=== PATIENT | female | born 1945 | race Caucasian/White ===

== ENCOUNTER 2020-06-12 09:16 | Inpatient (IN) | payer MEDICARE, MEDICAID ==
[~2020-06-12] VITALS: Ht 157.5 cm; Wt 73.6 kg
[2020-06-12 09:19] VITALS: BP 128/84
[2020-06-12] MEDS ORDERED: ARICEPT10 M1 PO (09:23)
[2020-06-12] MEDS ORDERED: APAP650 PO (09:23)
[2020-06-12] MEDS ORDERED: CLARITIN10 M3 PO (09:24)
[2020-06-12] MEDS ORDERED: BUMETANIDE 1 MG1 M1 PO (09:24)
[2020-06-12] MEDS ORDERED: LIPITOR40 MG PO (09:24)
[2020-06-12] MEDS ORDERED: CARVEDILOL3.125 MG PO (09:24)
[2020-06-12] MEDS ORDERED: CHILDREN'S ASPI81 M1 PO (09:24)
[2020-06-12] MEDS ORDERED: DULCOLAX STOOL100 M1 PO (09:25)
[2020-06-12] MEDS ORDERED: NEURONTIN 300M300 M2 PO (09:25)
[2020-06-12] MEDS ORDERED: CYMBALTA60 MG PO (09:25)
[2020-06-12] MEDS ORDERED: HYDROCODON-ACE1 EAC7 PO ×2 (09:26)
[2020-06-12] MEDS ORDERED: JANUVIA25 MG PO (09:26)
[2020-06-12] MEDS ORDERED: IPRAT-ALBUT 0.5-3 ML INH (09:26)
[2020-06-12] MEDS ORDERED: MELATONIN3 M1 PO (09:27)
[2020-06-12] MEDS ORDERED: LEVOTHYROXINE112 MC1 PO (09:27)
[2020-06-12] MEDS ORDERED: MAGNESIUM400 M1 PO (09:27)
[2020-06-12] MEDS ORDERED: ONE DAILY COMP1 EAC1 PO (09:27)
[2020-06-12] MEDS ORDERED: VITAMIN C500 M1 PO (09:28)
[2020-06-12] MEDS ORDERED: TRAMADOL 50 MG50 MG PO (09:28)
[2020-06-12] MEDS ORDERED: VOLTAREN GEL 1100 G1 TOP (09:29)
[2020-06-12] MEDS ORDERED: VITAMIN D3100 MCG PO (09:29)
[2020-06-12 09:57] LABS: HEMATOCRIT 38.7 % (37.0-47.0); MCH 29.9 pg (26.0-34.0); MCHC 33.6 g/dL (28.0-37.0); MCV 89.1 fL (80.0-100.0); MPV 7.2 fl. (7.2-11.1); RBC 4.34 mil/uL (4.20-5.00); RDW-CV 14.3 % (10.5-14.5); WBC 14.1 thou/uL (4.0-11.0)
[2020-06-12 10:08] LABS: CALCIUM 8.2 mg/dL (8.5-10.1); CREATININE 1.7 mg/dL (0.6-1.3)
[2020-06-12 12:35] LABS: URINE BILIRUBIN NEGATIVE (Negative); URINE BLOOD 2+ (Negative); URINE CLARITY CLEAR; URINE COLOR YELLOW; URINE GLUCOSE-RANDOM NEGATIVE (Negative); URINE KETONES NEGATIVE (Negative); URINE LEUKOCYTES-REFLEX 3+ (Negative); URINE NITRITE-REFLEX POSITIVE (Negative); URINE PROTEIN 2+ (Negative); URINE SPECIFIC GRAVITY 1.015 (1.005-1.030); URINE UROBILINOGEN 0.2 E.U./dl (0.2-1.0)
[2020-06-12 12:58] LABS: MUCUS 0-3 Light strn/LPF (None Seen); SQUAMOUS 0-3 Few /LPF (0-3)
[2020-06-12 12:59] LABS: TRIPLE PHOSPHATE CRYSTALS 0-3 Few /LPF (None Seen)
--- NOTE | 2020-06-12 16:09 | NUR ---
Infection Prevention Note: [facility] Dept reports a positive COVID 19 PCR test on 05/30/2020.
[2020-06-12 17:40] VITALS: BP 119/57
--- NOTE | 2020-06-12 18:32 | EKG ---
[place] [address] ELECTROCARDIOGRAM REPORT Name: JULIANNA ALONSO Room: [place] [address] ADM IN [facility]#: [id number] Admission: 06/12/20 Attend Phys: Cristian Posey, Discharge: Date of : 49 Date of Service: 06/12/20 0955 Report #: [id number] THIS REPORT FOR: //name// [facility] ED Test Date: 2020-06-12 Test Time: 09:55:05 Pat Name: JULIANNA ALONSO Department: Room: [facility] Gender: F Lot Associate: : 1945 Requested By: Deny Montalvo Order Number: [id number] MD: Chris Skelton Measurements Intervals [place] Rate: 85 P: 95 [place]: 128 QRS: -17 QRSD: 99 T: 33 QT: 435 QTc: 518 Interpretive Statements Sinus rhythm Borderline left axis deviation Abnormal R-wave progression, late transition Nonspecific T abnormalities, anterior leads Prolonged QT interval Artifact in lead(s) I,II,III,aVR,aVL,aVF and baseline wander in lead(s) V2 No previous ECG available for comparison Electronically Signed On 06-12-2020 18:32:09 PHP MYSQL DEVELOPER by Chris Skelton [email or web address] <ELECTRONICALLY SIGNED> By: Chris Skelton MD, [facility] 06/12/20 1832 4 0955 Chris Skelton MD, [facility] /EPI
--- NOTE | 2020-06-12 18:32 | EKG ---
[place] [address] ELECTROCARDIOGRAM REPORT Name: JULIANNA ALONSO Room: [place] [address] ADM IN [facility].#: [id number] Admission: 06/12/20 Attend Phys: Cristian Posey, Discharge: Date of : 49 Date of Service: 06/12/20 1342 Report #: [id number] THIS REPORT FOR: //name// [facility] ED Test Date: 2020-06-12 Test Time: 13:42:06 Pat Name: JULIANNA ALONSO Department: Room: [facility] Gender: F Automotive Worker: : 1945 Requested By: Deny Montalvo Order Number: [id number] MD: Chris Skelton Measurements Intervals [place] Rate: 78 P: 18 WI: 131 QRS: -25 QRSD: 95 T: 4 QT: 475 QTc: 542 Interpretive Statements Sinus rhythm Atrial premature complex Borderline left axis deviation Borderline low voltage, extremity leads Nonspecific T abnormalities, anterior leads Prolonged QT interval Compared to ECG 06/12/2020 09:55:05 Atrial premature complex(es) now present T-wave abnormality still present Electronically Signed On 06-12-2020 18:32:55 DECORATING CONSULTANT by Chris Skelton [email or web address] <ELECTRONICALLY SIGNED> By: Chris Skelton MD, [facility] 06/12/20 1832 41 134 Chris Skelton MD, [facility] /EPI
[2020-06-12 22:18] VITALS: BP 107/45
[2020-06-12 22:41] VITALS: BP 144/70
--- NOTE | 2020-06-13 02:49 | NUR ---
ASSUMED CARE OF PT AT 1900. PT IS ALERT AND ORIENTED. VSS. PERRLA. NO COMPLAINTS OF PAIN. PT HAS A HUGE BRUISE AND SWELLING TO HER FORHEAD FROM PREVIOUS FALL AT THE LONGTERM. PT IS IN SINUS RYTHM ON THE TELEMETRY. PT IS RESTING COMFORTABLY IN BED. RESPIRATIONS ARE EVEN AND NONLABORED. WILL CONTINUE TO MONITOR PT.
[2020-06-13 05:11] LABS: HEMATOCRIT 32.9 % (37.0-47.0); HEMOGLOBIN 11.2 gm/dL (12.0-15.0); MCH 30.5 pg (26.0-34.0); MCHC 34.1 g/dL (28.0-37.0); MCV 89.5 fL (80.0-100.0); MPV 7.6 fl. (7.2-11.1); NUCLEATED RBCS 0 /100WBC; PLATELET COUNT* 112 thou/uL (150-400); RBC 3.67 mil/uL (4.20-5.00); RDW-CV 14.6 % (10.5-14.5); WBC 9.2 thou/uL (4.0-11.0)
[2020-06-13 05:18] LABS: CALCIUM 7.7 mg/dL (8.5-10.1); CREATININE 1.5 mg/dL (0.6-1.3); POTASSIUM 3.7 mmol/L (3.5-5.1)
[2020-06-13 06:01] LABS: ABSOLUTE LYMPHOCYTES 0.3 thou/uL (0.8-5.3); ABSOLUTE MONOCYTES 0.2 thou/uL (0.0-1.2); ABSOLUTE NEUTROPHILS 8.7 thou/uL (1.6-8.1)
[2020-06-13 06:02] LABS: PLATELET ESTIMATE DECREASED; TOXIC GRANULATION Occasional
[2020-06-13 08:33] VITALS: BP 122/65
--- NOTE | 2020-06-13 10:43 | NUR ---
ASSUMED CARE OF PT THIS AM AROUND 0715- BLIND ESCORT IN PLACE ORDERED, TRACING SR- UPON ASSESSMENT PT NOTED TO DARIUSZ RESTING IN BED- PT A&O X4, NOTED TO BE WITH DRAWN WITH FLAT AFFECT- OSTOMY NOTED, INCONT OF URINE- Q2 HOUR TURNS IN PLACE INDICATED- LCTA, RESP EVEN AND UN-LABORED- VSS, O2 SAT 96-97% ON RA THIS AM- ABD SOFT/ROUND/NON-TENDER, BS X4 QUADS- IV NOTED TO LEFT AC INTACT, IVF INFUSSING PRESCRIBED- IV ABT GIVEN THIS AM PRESCIBED- SET UP ASSIST REQUIRED WITH MEALS- BS MONITORED ORDERED WITH INSULIN PRESCIBED THIS AM- PT DENIES ANY C/O PAIN/DISCOMFORT AT THIS TIME- CALL LIGHT AND PERSONAL BELONGINGS WITH IN REACH- ALL NEEDS MET AT THIS TIME-WCJAMIN
--- NOTE | 2020-06-13 11:30 | NUR ---
PT.IS A LTC RESIDENT AT [facility]. PER MAURIZIO/ISMagno, SHE IS MAINLY IN A WC. HAS DEMENTIA. SPOKE WITH , JERE,ON PHONE. HE SAID HE WANTS HER TO RETURN THERE AT DISCHARGE. ANTICIPATE DISCHARGE IN 1-2 DAYS. NO O2 USE AT [facility].
[2020-06-13 12:00] VITALS: BP 131/63
--- NOTE | 2020-06-13 14:19 | 2DMMODE ---
[place] [address] 2 D/M-MODE ECHOCARDIOGRAM Name: JULIANNA ALONSO Room: [address] IN [facility]#: [id number] Admission: 06/12/20 Attend Phys: Cristian Psoey, Discharge: Date of : 49 Date of Service: 06/13/20 1419 Report #: [id number] THIS REPORT FOR: cc: Wilbert Echavarria MD, Todd A. MD Holkins,Mahin Cade MD [facility] ~ APPROVED REPORT Study performed: 06/13/2020 11:47:33 EXAM: Comprehensive 2D, Doppler, and color-flow Echocardiogram Patient Location: In-Patient Room #: [facility] Status: routine BSA: 1.64 HR: 63 bpm BP: 122/65 mmHg Rhythm: NSR Other Information Study Quality: Good Indications Syncope 2D Dimensions IVSd: 7.71 (7-11mm) LVOT Diam: 18.95 (18-24mm) LVDd: 48.17 mm PWd: 8.37 (7-11mm) Ascending Ao: 30.84 (22-36mm) LVDs: 37.58 (25-40mm) Aortic Root: 29.17 mm Volumes Left Atrial Volume (Systole) LA ESV Index: 25.00 mL/m2 Aortic Valve AoV Peak El.: 1.41 m/s AO Peak Gr.: 7.95 mmHg LVOT Max P.65 mmHg AO Mean Gr.: 4.49 mmHg LVOT Mean P.42 mmHg LVOT Max V: 0.81 m/s AO V2 VTI: 35.42 cm LVOT Mean V: 0.55 m/s JANY (VTI): 1.68 cm2 LVOT V1 VTI: 21.07 [place] [address] 2 D/M-MODE ECHOCARDIOGRAM Name: JULIANNA ALONSO Room: [address] IN [facility]#: [id number] Admission: 06/12/20 Attend Phys: Cristian Posey, Discharge: Date of : 49 Date of Service: 06/13/20 1419 Report #: [id number] Mitral Valve MV Mean Gr.: 2.31 mmHg E/A Ratio: 0.69 MV Decel. Time: 259.65 ms MV E Max El.: 0.85 m/s MV PHT: 75.30 ms MVA (PHT): 2.92 cm2 TDI E/Lateral E': 10.63 E/Medial E': 17.00 Medial E' El.: 0.05 m/s Lateral E' El.: 0.08 m/s Pulmonary Valve PV Peak El.: 0.76 m/s PV Peak Gr.: 2.30 mmHg Tricuspid Valve RAP Estimate: 5.00 mmHg TR Peak Gr.: 34.42 mmHg RVSP: 39.00 mmHg PA Pressure: 39.00 mmHg Left Ventricle The left ventricle is normal size. There is moderate global hypokinesis of the left ventricle. There is normal left ventricular wall thickness. Left ventricular systolic function is moderately decreased. LVEF is 40%. Grade I - abnormal relaxation pattern. Right Ventricle The right ventricle is normal size. The right ventricular systolic function is normal. Atria The left atrium size is normal. The right atrium size is normal. Aortic Valve Mild aortic valve sclerosis. No aortic regurgitation is present. No hemodynamically significant valvular aortic stenosis. Mitral Valve There is mitral annular calcification. Mild mitral regurgitation. No evidence of mitral valve stenosis. Tricuspid Valve The tricuspid valve is normal in structure. Mild tricuspid regurgitation. [place] [address] 2 D/M-MODE ECHOCARDIOGRAM Name: JULIANNA ALONSO Room: [address]#: [id number] Admission: 06/12/20 Attend Phys: Cristian Posey, Discharge: Date of : 49 Date of Service: 06/13/20 1419 Report #: [id number] Pulmonic Valve The pulmonary valve is normal in structure. There is no pulmonic valvular regurgitation. Great Vessels The aortic root is normal in size. IVC is normal in size and collapses >50% with inspiration. Pericardium There is no pericardial effusion. <Conclusion> The left ventricle is normal size. There is normal left ventricular wall thickness. Left ventricular systolic function is moderately decreased. LVEF is 40%. Grade I - abnormal relaxation pattern. The right ventricle is normal size. The left atrium size is normal. Mild aortic valve sclerosis. No aortic regurgitation is present. No hemodynamically significant valvular aortic stenosis. Mild mitral annular calcification Mild mitral regurgitation No evidence of mitral valve stenosis. The tricuspid valve is normal in structure. Mild tricuspid regurgitation. Mild pulmonary hypertension. IVC is normal in size and collapses >50% with inspiration. There is no pericardial effusion. There is moderate global hypokinesis of the left ventricle. <ELECTRONICALLY SIGNED> By: Mahin Nelson MD, FACC 06/13/20 1419 1419 1419 Mahin Nelson MD, FACC /INF
[2020-06-13 15:56] VITALS: BP 158/94
[2020-06-13 20:05] VITALS: BP 124/71
[2020-06-14 00:38] VITALS: BP 123/65
--- NOTE | 2020-06-14 02:26 | NUR ---
ASSUMED CARE OF PT AT 1900. PT IS ALERT AND ORIENTED. VSS. PERRLA. NO COMPLAINTS OF PAIN. PT HAS MULTIPLE BRUISES FROM FALL PRIOR TO ADMISSION. PT IS ON ROOM AIR. PT IS IN SINUS RYTHM ON THE TELEMETRY. PT IS RESTING COMFORTABLY IN BED. RESPIRATIONS ARE EVEN AND NONLABORED. WILL CONTINUE TO MONITOR PT.
[2020-06-14 05:15] VITALS: BP 126/64
[2020-06-14 05:34] LABS: HEMATOCRIT 35.2 % (37.0-47.0); HEMOGLOBIN 11.9 gm/dL (12.0-15.0); MCH 29.7 pg (26.0-34.0); MCHC 33.7 g/dL (28.0-37.0); MCV 88.1 fL (80.0-100.0); MPV 7.8 fl. (7.2-11.1); RBC 3.99 mil/uL (4.20-5.00); RDW-CV 14.4 % (10.5-14.5); WBC 8.1 thou/uL (4.0-11.0)
[2020-06-14 05:49] LABS: CALCIUM 8.1 mg/dL (8.5-10.1); CREATININE 1.5 mg/dL (0.6-1.3); POTASSIUM 3.1 mmol/L (3.5-5.1)
[2020-06-14 08:32] VITALS: BP 132/66
[2020-06-14] MEDS ORDERED: CEFDINIR300 MG PO (12:19)
--- NOTE | 2020-06-14 12:49 | NUR ---
PT RESTING WITHOUT COMPLIANTS.SR ON MONITOR.O2 SAT 85% ON RA. 2L NC PLACED AND O2 SAT CAME UP TO 94%. PT IS SUPPOSED TO WEAR O2 AND REEDUCATED ON IMPORTANCE.PT TO DC BACK TO SNF. NOTHING FURTHER.CLWR,WCTM
[2020-06-14 14:02] VITALS: BP 117/68
--- NOTE | 2020-06-14 14:05 | NUR ---
CM INFORMED BY THE PHYSICIAN OF PLAN TO D/C PATIENT BACK TO [facility] TODAY. CM ATTEMPTED TO CONTACT PT'S SPOUSE TO INFORM OF HER D/C. NO ANSWER, BUT CM LEFT A MESSAGE TO RETURN CALL WITH ANY QUESTIONS OR CONCERNS. CM CALLED AND INFORMED ISM OF PT'S D/C AND ISM ADMISSIONS ARRANGED TRANSPORT FOR [phone]. CM CALLED TO INFORM RN IN-CHARGE OF PT OF PT'S TIME OF TRANSPORT AND WHERE TO CALL REPORT. RN IN AGREEMENT. CM WILL REMAIN AVAILABLE TO ASSIST AND FOLLOW NEEDED. [facility] PHONE: [phone] FAX: [phone]
--- NOTE | 2020-06-14 14:31 | NUR ---
ATTEMPTED TO CALL REPORT TO [facility] AND [facility] WILL CONTINUE TO TRY.
--- NOTE | 2020-06-14 18:47 | NUR ---
PT DCD TO SNF WITH TRANSPORT. MADE SEVERAL ATTEMPTS TO CONTACT FACILITY WITHOUT SUCCESS.
== END 2020-06-14 18:15 | DRG 177 ==
LOC: M.ERS 09:16 → M.TBA-ER 14:21 → M.ORTHSURG 14:21
PROVIDERS: Emergency Medicine Emergency Medical Services; Family Medicine; ADMIT Internal Medicine; ATTEND Internal Medicine
DX: U07.1 COVID-19 (principal); G92 Toxic encephalopathy; J12.82 Pneumonia due to coronavirus disease 2019; N17.0 Acute kidney failure with tubular necrosis; J96.20 Acute and chronic respiratory failure, unspecified whether with hypoxia or hypercapnia; R65.10 Systemic inflammatory response syndrome (SIRS) of non-infectious origin without acute organ dysfunction; I13.0 Hypertensive heart and chronic kidney disease with heart failure and stage 1 through stage 4 chronic kidney disease, or unspecified chronic kidney disease; N39.0 Urinary tract infection, site not specified; I25.10 Atherosclerotic heart disease of native coronary artery without angina pectoris; E78.5 Hyperlipidemia, unspecified; N18.9 Chronic kidney disease, unspecified; F32.9 Major depressive disorder, single episode, unspecified; M81.0 Age-related osteoporosis without current pathological fracture; E03.9 Hypothyroidism, unspecified; F03.90 Unspecified dementia, unspecified severity, without behavioral disturbance, psychotic disturbance, mood disturbance, and anxiety; I50.9 Heart failure, unspecified; E11.22 Type 2 diabetes mellitus with diabetic chronic kidney disease; E87.6 Hypokalemia; I25.5 Ischemic cardiomyopathy; B96.4 Proteus (mirabilis) (morganii) as the cause of diseases classified elsewhere; S01.81XA Laceration without foreign body of other part of head, initial encounter; W18.39XA Other fall on same level, initial encounter; J44.9 Chronic obstructive pulmonary disease, unspecified; Z93.3 Colostomy status; Z79.84 Long term (current) use of oral hypoglycemic drugs; Z79.899 Other long term (current) drug therapy; Z79.82 Long term (current) use of aspirin; Z88.0 Allergy status to penicillin; Y93.89 Activity, other specified; Y92.89 Other specified places as the place of occurrence of the external cause; Y99.8 Other external cause status; Z23 Encounter for immunization

== ENCOUNTER 2020-08-24 13:37 | Inpatient (IN) | payer MEDICARE, MEDICAID ==
[2020-08-24] VITALS (31 sets, daily range): BP systolic 74–161; BP diastolic 41–83
[~2020-08-24] VITALS: Ht 170.2 cm; Wt 73.7 kg
[~2020-08-24 13:37] MED LIST: APAP650 PO; ARICEPT10 M1 PO; BUMETANIDE 1 MG1 M1 PO; CARVEDILOL3.125 MG PO; CEFDINIR300 MG PO; CHILDREN'S ASPI81 M1 PO; CLARITIN10 M3 PO; CYMBALTA60 MG PO; DULCOLAX STOOL100 M1 PO; HYDROCODON-ACE1 EAC7 PO; IPRAT-ALBUT 0.5-3 ML INH; JANUVIA25 MG PO; LEVOTHYROXINE112 MC1 PO; LIPITOR40 MG PO; MAGNESIUM400 M1 PO; MELATONIN3 M1 PO; NEURONTIN 300M300 M2 PO; ONE DAILY COMP1 EAC1 PO; TRAMADOL 50 MG50 MG PO; VITAMIN C500 M1 PO; VITAMIN D3100 MCG PO; VOLTAREN GEL 1100 G1 TOP
[2020-08-24 14:04] LABS: ABSOLUTE BASOPHILS 0.2 thou/uL (0.0-0.2); ABSOLUTE EOSINOPHILS 0.8 thou/uL (0.0-0.7); ABSOLUTE LYMPHOCYTES 2.5 thou/uL (0.8-5.3); ABSOLUTE MONOCYTES 0.5 thou/uL (0.0-1.2); ABSOLUTE NEUTROPHILS 11.8 thou/uL (1.6-8.1); EOSINOPHILS 4.8 %; HEMATOCRIT 39.8 % (37.0-47.0); HEMOGLOBIN 12.8 gm/dL (12.0-15.0); MCH 30.5 pg (26.0-34.0); MCHC 32.2 g/dL (28.0-37.0); MCV 94.9 fL (80.0-100.0); MONOCYTES 3.4 %; MPV 7.4 fl. (7.2-11.1); NUCLEATED RBCS 0 /100WBC; PLATELET COUNT* 305 thou/uL (150-400); POLYS 74.8 %; RBC 4.19 mil/uL (4.20-5.00); RDW-CV 15.5 % (10.5-14.5); WBC 15.8 thou/uL (4.0-11.0)
[2020-08-24 14:15] LABS: CALCIUM 8.8 mg/dL (8.5-10.1); CREATININE 1.6 mg/dL (0.6-1.3); POTASSIUM 4.3 mmol/L (3.5-5.1)
[2020-08-24 14:16] LABS: APTT 23.8 Seconds (25.0-31.3); PROTIME 10.3 Seconds (9.20-11.50)
[2020-08-24 14:29] LABS: ALBUMIN 3.1 g/dL (3.4-5.0); TOTAL BILIRUBIN 0.7 mg/dL (<0.1-1.0); TOTAL PROTEIN 8.3 g/dL (6.4-8.2)
[2020-08-24 16:35] LABS: BE 1.5 mmol/L (-2 to +3); PO2 72.8 mmHg (75.0-100.0); pH 7.351 (7.340-7.450)
[2020-08-24 16:37] LABS: PCO2 51.6 mmHg (35.0-45.0)
--- NOTE | 2020-08-24 17:00 | NUR ---
PICTURES OF WOUNDS COMPLETE. UNABLE TO MEASURE DUE TO NOT HAVING ANY MEASURING STICKERS
[2020-08-24 17:18] LABS: CALCIUM 9.4 mg/dL (8.5-10.1); CREATININE 1.6 mg/dL (0.6-1.3); POTASSIUM 4.4 mmol/L (3.5-5.1)
[2020-08-24 17:21] LABS: PHOSPHORUS* 4.1 mg/dL (2.5-4.9)
[2020-08-24 20:49] LABS: BE 1.9 mmol/L (-2 to +3); PO2 98.1 mmHg (75.0-100.0); pH 7.442 (7.340-7.450)
--- NOTE | 2020-08-24 22:36 | NUR ---
INITAL ASSESMENT COMPLETED AT 1930. PT INTUBATED AND SEDATED ON VENTILATOR. DR RUIZ NOTIFIED REGARDING PT ATTEMPTING TO SELF EXTUBATE. ORDER FOR SOFT BILATERAL WRIST RESTRAINTS OBTAINED TO MAINTAIN ET TUBE, BLAIR CATHETER, OG TUBE AND CENTRAL LINE. ORDER OBTAINED FOR IV LEVOPHED TO MAINTAIN MAP 65. ORDER FOR CVP MONITOR TO ASSES HYDRATION STATUS OBTAINED. NO FLUID BOLUS INDICATED, CVP WITHIN NORMAL LIMITS.
[2020-08-25] VITALS (81 sets, daily range): BP systolic 75–160; BP diastolic 40–68
--- NOTE | 2020-08-25 09:45 | EKG ---
[place] [address] ELECTROCARDIOGRAM REPORT Name: JULIANNA ALONSO Room: [address] ADM IN .R.#: [id number] Admission: 08/24/20 Attend Phys: Pete Boyle Discharge: Date of : 49 Date of Service: 08/24/20 1343 Report #: [id number] THIS REPORT FOR: //name// [facility] ED Test Date: 2020-08-24 Test Time: 13:43:37 Pat Name: JULIANNA ALONSO Department: Room: [facility] Gender: F Rack Maker: CCD : 1945 Requested By: Deny Montalvo Order Number: [id number] MD: Shilo Cuhng Measurements Intervals [place] Rate: 92 P: 53 OK: 154 QRS: 15 QRSD: 81 T: 42 QT: 417 QTc: 516 Interpretive Statements Sinus rhythm Borderline low voltage, extremity leads Consider anterolateral infarct Prolonged QT interval Compared to ECG 06/12/2020 13:42:06 Atrial premature complex(es) no longer present Electronically Signed On 08-25-2020 9:44:58 CDT by Shilo Chung [email or web address] <ELECTRONICALLY SIGNED> By: Shilo Chung MD, FACC 08/25/20 0944 1343 1343 Shilo Chung MD, FAC /EPI
--- NOTE | 2020-08-25 10:10 | CON ---
[address] [address] CONSULTATION Name: JULIANNA ALONSO Room: [address] IN M.R.#: [id number] Admission: 08/24/20 Attend Phys: Marilou Corona Discharge: Date of : 49 Report #: [id number] THIS REPORT FOR: cc: Wilbert Echavarria MD, Todd A. MD ~ Shilo Chung MD [facility] DATE OF SERVICE: 08/25/2020 CARDIOLOGY CONSULTATION HISTORY OF PRESENT ILLNESS: The patient is a 75-year-old white female who I was asked to see in the ICU today after she was noted to be short of breath. The patient is currently intubated and on sedation. There are no family members available. The history is obtained from the chart. The patient was admitted here in May with syncope and had a frontal hematoma. She had COVID-19. She had chronic kidney disease. Apparently, she has a history of dementia. She was brought back to the hospital yesterday by paramedics. Apparently, she was short of breath and sweaty. When paramedics arrived, she was put on CPAP. Her blood sugar was elevated. She was admitted here to [place] and had to be intubated. Cardiology consultation requested. There is no history of chest pain, palpitations or syncope. PAST MEDICAL HISTORY: Significant for previous colostomy, dementia, diabetes. MEDICATIONS: Her previous medications included Aricept, aspirin, Lipitor, Bumex, carvedilol, Neurontin, inhaler, Januvia, Synthroid, tramadol. ALLERGIES: SHE HAS AN ALLERGY TO PENICILLIN. SOCIAL HISTORY: She is . No history of smoking. REVIEW OF SYSTEMS: She has a history of dementia, but no history of stroke. No history of asthma, liver disease. She has chronic kidney disease. No cancer. She has a colostomy in place. No chronic skin condition. PHYSICAL EXAMINATION: GENERAL: Reveals an elderly female lying in bed. She appeared in no distress. VITAL SIGNS: Blood pressure 110/68, pulse 70. She was afebrile. HEENT: She was anicteric. Conjunctivae pink. Mucous membranes are moist. NECK: Veins do not appear distended. CHEST: Clear to auscultation. CARDIOVASCULAR: Regular rate and rhythm. ABDOMEN: Obese. EXTREMITIES: Had no edema. Dorsalis ped[place] [address] CONSULTATION Name: JULIANNA ALONSO Room: [address]#: [id number] Admission: 08/24/20 Attend Phys: Marilou Corona Discharge: Date of : 49 Report #: [id number] SKIN: Cool and dry. NEUROLOGIC: She is unresponsive in voice. RADIOLOGICAL DATA: Her ECG showed a sinus rhythm, poor R-wave progression, nonspecific T-wave changes. Her workup, she had an echocardiogram done in May that showed an ejection fraction of 40%, aortic sclerosis. The patient had a chest x-ray on admission that showed consolidation in left lower lobe, no effusion, mild cardiomegaly. She had carotid Doppler study performed in May of this year that showed mild plaque, but no significant stenosis. LABORATORY DATA: Sodium 138, BUN of 18, creatinine 1.6, glucose 420. Albumin 3.1. Troponin 0.06. BNP 6833. White blood cell count 15.8, hemoglobin 12.8. Her COVID antigen stat test was negative. IMPRESSION AND RECOMMENDATIONS: 1. Dementia. 2. Pneumonia. 3. Cardiomyopathy. 4. History of colostomy. 5. Chronic kidney disease. 6. Diabetes. 7. Hypertension. The patient has been on a beta-kassidy. <ELECTRONICALLY SIGNED> By: Shilo Chung MD, FACC 08/25/20 1010 0825 [id number] Chung MD, FACC /nt
--- NOTE | 2020-08-25 11:22 | NUR ---
WOUND NURSE: PATIENT SEEN TO ADDRESS PERISTOMAL EXCORIATION. PRESENTS WITH LARGE EXCORIATED AREA MEASURING 9.0 X 10.0 X 0.1 CM. CONTAINS RED, DENUDED TISSUE WEEPING MINIMAL AMOUNTS OF SEROUSANGUINOUS DRAINAGE. OSTOMY SITE CARE WAS PROVIDED BY CLEANSING WITH SOAP AND WATER, RINSED WITH WATER, THEN PATTED DRY. CRUSTED THE PERISTOMAL EXCORIATED TISSUE USING SKIN PREP, THEN NYSTATING POWDER & STOMA POWDER X3. REAPPLIED OSTOMY APPLIANCE AFTER CUTTING HOLE IN FLANGE THE SIZE OF THE STOMA. PLACED AN OPTIFOAM GENTLE SACRAL BORDERED FOAM FOR PROTECTION PATIENT IS WITHOUT BREAKDOWN ON SACRUM OR BUTTOCKS. PATIENT WITH LEFT HEEL SUPERFICIAL WOUND MEASURING 0.8 X 0.5 X 0.1 CM. THERE IS NO DRAINAGE FROM THIS WOUND AND IT APPEARS CLOSED WITH PINK EPITHELIAL TISSUE ACROSS THE WOUND BED. THERE IS A CALLOUSED LESION ON THE OPPOSING HEEL WHICH DOES NOT APPEAR OPEN. RECOMMEND LEAVING HEELS OPEN TO AIR. PATIENT IS ON VENTILATOR AND NOT TEACHEABLE.
--- NOTE | 2020-08-25 11:47 | NUR ---
Infection Prevention: Patient's Covid history reviewed. Initial illness May 30, 2020. Currently no indication for Covid isolation, may discontinue. Discussed with sukhdeep Turpin, PHILOSOPHY FACULTY MEMBER.
[2020-08-25 12:06] LABS: HEMATOCRIT 33.4 % (37.0-47.0); HEMOGLOBIN 10.8 gm/dL (12.0-15.0); MCH 30.2 pg (26.0-34.0); MCHC 32.4 g/dL (28.0-37.0); MCV 93.1 fL (80.0-100.0); MPV 6.9 fl. (7.2-11.1); NUCLEATED RBCS 0 /100WBC; PLATELET COUNT* 237 thou/uL (150-400); RBC 3.59 mil/uL (4.20-5.00); RDW-CV 15.2 % (10.5-14.5); WBC 12.3 thou/uL (4.0-11.0)
[2020-08-25 12:19] LABS: ALBUMIN 2.4 g/dL (3.4-5.0); CALCIUM 8.8 mg/dL (8.5-10.1); CREATININE 2.1 mg/dL (0.6-1.3); MAGNESIUM 1.9 mg/dL (1.8-2.4); TOTAL BILIRUBIN 0.5 mg/dL (<0.1-1.0)
[2020-08-25 12:20] LABS: POTASSIUM 2.8 mmol/L (3.5-5.1)
[2020-08-25 12:38] LABS: ABSOLUTE LYMPHOCYTES 0.5 thou/uL (0.8-5.3); ABSOLUTE MONOCYTES 0.4 thou/uL (0.0-1.2); ABSOLUTE NEUTROPHILS 11.4 thou/uL (1.6-8.1); PLATELET ESTIMATE ADEQUATE
--- NOTE | 2020-08-25 13:59 | NUR ---
ICU rounds: Vented and sedated. Peep 5, fio2 40%. On Propofal and Levophed gtts. Out of iso, PCR pending, Pt was covid positive in May. Per Donna at [facility], Pt has not recieved her covid vaccination. Pt is a LTC resident at [facility]. CM left VM for Pt's to confirm return to LTC at [facility]. Pt is [place] bound. No o2. Await call back from Pt's . Following
--- NOTE | 2020-08-25 16:51 | 2DMMODE ---
[place] [address] 2 D/M-MODE ECHOCARDIOGRAM Name: JULIANNA ALONSO Room: [address] ADM IN .R.#: [id number] Admission: 08/24/20 Attend Phys: Pete Boyle Discharge: Date of : 49 Date of Service: 08/25/20 1651 Report #: [id number] THIS REPORT FOR: cc: Wilbert Echavarria MD, Todd A. MD Blick, David R. MD [facility] ~ APPROVED REPORT Study performed: 08/25/2020 14:38:23 EXAM: Limited 2D Echocardiogram BSA: 1.85 HR: 73 bpm BP: 117/67 mmHg Other Information Study Quality: Fair Technically limited study due to inability to position patient. Indications Dyspnea 2D Dimensions IVSd: 7.20 (7-11mm) LVDd: 51.16 mm PWd: 9.75 (7-11mm) LVDs: 40.70 (25-40mm) Aortic Root: 30.09 mm Left Ventricle The left ventricle is normal size. There is global hypokinesis of the left ventricle. There is normal left ventricular wall thickness. Left ventricular systolic function is moderately decreased. Right Ventricle The right ventricle is normal size. Atria The left atrium size is normal. The right atrium size is normal. Aortic Valve The aortic valve [place] [address] 2 D/M-MODE ECHOCARDIOGRAM Name: JULIANNA ALONSO Room: [address] IN .R.#: [id number] Admission: 08/24/20 Attend Phys: Pete Boyle Discharge: Date of : 49 Date of Service: 08/25/201650 Report #: [id number] Mitral Valve The mitral valve is normal in structure. Tricuspid Valve The tricuspid valve is normal in structure. Pulmonic Valve Pulmonic valve is not well visualized. Great Vessels The aortic root is normal in size. Pericardium There is no pericardial effusion. Small pleural effusion. <Conclusion> Left ventricular systolic function is moderately decreased. There is global hypokinesis of the left ventricle. <ELECTRONICALLY SIGNED> By: Shilo Chung MD, FACC 08/25/201650 50 50 Shilo Chung MD, FACC /INF
--- NOTE | 2020-08-25 18:44 | CON ---
[address] [address] CONSULTATION Name: JULIANNA ALONSO Room: [address] IN M.R.#: [id number] Admission: 08/24/20 Attend Phys: Marilou Corona Discharge: Date of : 49 Report #: [id number] THIS REPORT FOR: cc: Wilbert Echavarria MD, Todd A. MD ~ Rick Juarez MD DATE OF SERVICE: 08/25/2020 Consult has been requested by Dr. Boyle. INDICATION FOR CONSULTATION: Acute hypoxemic respiratory failure. HISTORY OF PRESENT ILLNESS: A 75-year-old female, past medical history includes a history of COVID-19 in May. She is a resident of a long-term care facility. The patient also has reduced left ventricular ejection fraction to around 40% in May. I do not have details of cardiac history available. She is reported to be nonsmoker; however, she does take [facility]. The patient also does have chronic renal insufficiency with a baseline creatinine around 1.5. The patient at this time is admitted with acute shortness of breath. Yesterday, the patient is reported to have had a sudden increase in shortness of breath with hypoxemia with O2 saturations up to 63% despite use of flow nasal cannula. The patient was unable to tolerate a CPAP or BiPAP; and therefore, was endotracheally intubated. There is increase in pulmonary vascular congestion and infiltrates on the chest x-ray yesterday, which are better today. The patient overnight required 60% FiO2 with 8 of PEEP to maintain O2 saturation in the low 90s. This has improved significantly by this morning. I repeated a chest x-ray, which also looks better than yesterday. The patient currently is saturating 100%; and therefore, we are titrating down FiO2. She is on low dose of Levophed, but also is on propofol at 40. She has a central line for IV access. The patient does have a colostomy in place. There is significant excoriation noted around the colostomy, I was shown pictures of it. The patient is on the ventilator; and therefore, is unable to provide a further history or review of systems. PAST MEDICAL HISTORY: COVID-19 in May that she is reported to have subsequently been vaccinated for COVID; chronic kidney disease, baseline creatinine 1.5; volvulus; history of colostomy; dementia; major depressive disorder; coronary artery disease; left ventricular ejection fraction is 40% on the last echo from May without elevation in right heart pressures; hypothyroidism; hypertension; osteoporosis; type 2 diabetes; obstructive lung disease, either asthma or COPD, [place] [address] CONSULTATION Name: JULIANNA ALONSO Room: [address] IN ..#: [id number] Admission: 08/24/20 Attend Phys: Marilou Corona Discharge: Date of : 49 Report #: [id number] SOCIAL HISTORY: There is no known history of smoking, ethanol abuse or drug abuse. She is the resident of a long-term care facility. ALLERGIES: SHE IS REPORTED TO BE ALLERGIC TO PENICILLIN; HOWEVER, TOLERATES CEPHALOSPORINS WITHOUT PROBLEMS. FAMILY HISTORY: There is no pertinent family history. CURRENT MEDICATIONS: List in [facility] reviewed. HOME MEDICATIONS: List also in [facility] reviewed. PHYSICAL EXAMINATION: GENERAL: She is sedated to around RAST -3. She is on propofol 40. She is on low-dose Levophed and on a tidal volume of 450, AC rate is 14. She is not overbreathing the ventilator. VITAL SIGNS: She is saturating 100%, blood pressure is 90/60, heart rate is 71. She is afebrile with a temperature of 35.9. HEENT: Head is normocephalic and atraumatic. There is an endotracheal tube in good position. There is also an OG in place. NECK: Does not show raised JVP, asymmetry, mass or lymph nodes. CHEST: Symmetrical expansion on inspection and palpation. On auscultation, chest is clear. HEART: Regular. There is no murmur. ABDOMEN: Soft and nontender. EXTREMITIES: Lower extremities show no edema and no calf tenderness. See discussion regarding colostomy as above. NEUROLOGICAL: She did move all extremities to pain. She is sedated as above. LABORATORY DATA: The patient's chest x-ray is reviewed, does show bilateral infiltrates. There is also pulmonary edema on her chest x-ray yesterday, there is improvement in pulmonary edema since yesterday. Endotracheal tube is towards the lower end of the trachea. The arterial blood gases in [facility] reviewed. The rest of the labs from yesterday in [facility] also reviewed. I have ordered repeat labs, which are pending. The patient's COVID-19 antigen is negative, the PCR is positive. ASSESSMENT AND PLAN: 1. Acute hypoxemic respiratory failure. At first glance, this appears to be secondary to increase in pulmonary vascular congestion/pulmonary edema yesterday. Other etiologies are not fully ruled out. She does appear to have some infiltrates as well. There is no obvious sign of thromboembolism; however, this does need to be evaluated further as well. At this time, I feel that there is room to cut down on her sedation. If she is comfortable, we can cut down to [address] [place] [address] CONSULTATION Name: JULIANNA ALONSO Room: [address] ADM IN .R.#: [id number] Admission: 08/24/20 Attend Phys: Marilou Corona Discharge: Date of : 49 Report #: [id number] around RAST -1. We will follow along and see if there is an indication to add a fentanyl drip. I will go ahead and add p.r.n. fentanyl. We will decrease FiO2. If she tolerates this, we will decrease PEEP. If she tolerates drop in PEEP as well then I will likely consider a weaning trial, most likely this will be tomorrow morning. Her tidal volume set is 450, which is on the lower side around 7 mL/kg. I did not make a change at this time, may consider cutting back the inspiratory time, currently at 1.39 because if the patient does overbreathe later then this may cut back I:E ratio. 2. Icjkr-ap-zbagknb systolic congestive heart failure. Cardiology service is on the case. There is pulmonary edema on the chest x-rays performed yesterday. This does look better today. I ordered repeat labs. We will review and then advise further. If creatinine is stable then some diuresis can be considered; however, I would like to look at the creatinine first and note that she also is on Levophed. 3. Pulmonary infiltrates. She is on ceftriaxone as well as Zithromax. I continued the same. Considering that she has a colostomy with significant excoriation around, I would like to add some anaerobic coverage as well and I therefore added metronidazole. 4. Chronic renal insufficiency, baseline creatinine is around 1.5. We will therefore go ahead and do a renal ultrasound as well. Repeat labs as above from today are pending. 5. Hypotension. This is primarily secondary to Levophed. Discussion regarding consideration for fentanyl is as above. We will follow along. Maintain a MAP of 65 or higher. Her lactate is elevated. She should be able to tolerate more fluids while on the ventilator; however, I will only treat the lactate if her blood pressure drops further or if her creatinine is rising as this may impair weaning. 6. Possible history of obstructive lung disease. She is on DuoNebs. Note that there is mention of chronic obstructive pulmonary disease, was also mentioned that she is a lifetime nonsmoker. I will continue the same. Note that she is also on budesonide. Initially, she did get Solu-Medrol as well. I did not order more Solu-Medrol at this time. 7. Recent COVID-19, my suspicion of a recurrence of COVID-19 is low at this time considering that she is reported to have had vaccination as well. 8. Colostomy with skin excoriation around the colostomy. See discussion as above. Surgery service has also evaluated the patient. 9. Diabetes with hyperglycemia. I would defer to the primary service. 10. Deep venous thrombosis prophylaxis. If excoriation around the colostomy is not significant enough to contraindicate this then I recommend starting with subcutaneous Lovenox for deep venous thrombosis prophylaxis. 11. Evaluation for thromboembolic phenomena. I will do D-dimer. If elevated, will do venous Dopplers. I do not intend to do a CTA chest as creatinine is elevated. Overall, suspicion is low. A repeat echo is already ordered. I will review when available. [address] [place] [address] CONSULTATION Name: JULIANNA ALONSO Room: [address] [place] [facility].#: [id number] Admission: 08/24/20 Attend Phys: Marilou Corona Discharge: Date of : 49 Report #: [id number] 12. Gastrointestinal prophylaxis: Protonix. 13. Nutrition. She has been started with tube feeds and I agree with the same. 14. The patient is critically ill at this time. Total time spent providing critical care to this patient today is around 45 minutes. <ELECTRONICALLY SIGNED> By: Rick Juarez MD 08/25/20 1844 [id number] Juarez MD /nt
[2020-08-26] VITALS (86 sets, daily range): BP systolic 87–134; BP diastolic 37–64
[2020-08-26 05:09] LABS: ABSOLUTE BASOPHILS 0.1 thou/uL (0.0-0.2); ABSOLUTE EOSINOPHILS 0.2 thou/uL (0.0-0.7); ABSOLUTE LYMPHOCYTES 0.5 thou/uL (0.8-5.3); ABSOLUTE MONOCYTES 0.3 thou/uL (0.0-1.2); ABSOLUTE NEUTROPHILS 10.9 thou/uL (1.6-8.1); BASOPHILS 0.5 %; EOSINOPHILS 2.1 %; HEMOGLOBIN 9.3 gm/dL (12.0-15.0); LYMPHOCYTES 4.2 %; MCH 30.5 pg (26.0-34.0); MCHC 33.1 g/dL (28.0-37.0); MCV 92.3 fL (80.0-100.0); MONOCYTES 2.3 %; MPV 7.5 fl. (7.2-11.1); NUCLEATED RBCS 0 /100WBC; PLATELET COUNT* 189 thou/uL (150-400); POLYS 90.9 %; RBC 3.03 mil/uL (4.20-5.00); RDW-CV 15.3 % (10.5-14.5)
[2020-08-26 05:14] LABS: CALCIUM 9.1 mg/dL (8.5-10.1); CREATININE 1.7 mg/dL (0.6-1.3); MAGNESIUM 2.4 mg/dL (1.8-2.4); POTASSIUM 3.9 mmol/L (3.5-5.1)
--- NOTE | 2020-08-26 12:05 | NUR ---
ICU rounds: Pulm attempted weaning trial, plan to re-attempt later today. Pt in restraints. Central line and durand. Wound care following. CM spoke with Pt's via phone, per , plan is for Pt to return to [facility] at [place]. confirmed that Pt is wc bound and on continuous O2 at [facility].
[2020-08-26 13:22] LABS: BE 2.7 mmol/L (-2 to +3); PCO2 41.7 mmHg (35.0-45.0); PO2 83.6 mmHg (75.0-100.0); pH 7.433 (7.340-7.450)
--- NOTE | 2020-08-26 13:49 | NUR ---
PER DR ORTIZ, PT DID WELL ON WEANING TRIAL AND IS OK TO EXTUBATE. PT EXTUBATED AT 1337. PT TOLERATED WELL AND IS RESTING AT THIS TIME. VSS.
--- NOTE | 2020-08-26 18:02 | NUR ---
Pt extubated this afternoon at 1330. Pt tolerated well. Tried to titrate levophed off and bp kept dropping and map <60. See assessment as charted. Restraints off at 1330 as well. No verbal response from patient with any questions. Possible baseline non verbal dementia. unsure of baseline at this time. No other concerns at this time. High fall precautions in place, bed alarm on.
[2020-08-27] VITALS (41 sets, daily range): BP systolic 86–140; BP diastolic 35–71
[2020-08-27 03:40] LABS: ALBUMIN 2.7 g/dL (3.4-5.0); CALCIUM 8.5 mg/dL (8.5-10.1); CREATININE 1.5 mg/dL (0.6-1.3); MAGNESIUM 2.1 mg/dL (1.8-2.4); POTASSIUM 3.5 mmol/L (3.5-5.1); TOTAL BILIRUBIN 1.1 mg/dL (<0.1-1.0); TOTAL PROTEIN 6.8 g/dL (6.4-8.2)
[2020-08-27 03:44] LABS: HEMATOCRIT 30.2 % (37.0-47.0); HEMOGLOBIN 9.9 gm/dL (12.0-15.0); MCH 30.5 pg (26.0-34.0); MCHC 32.7 g/dL (28.0-37.0); MCV 93.1 fL (80.0-100.0); MPV 7.5 fl. (7.2-11.1); NUCLEATED RBCS 0 /100WBC; PLATELET COUNT* 163 thou/uL (150-400); RBC 3.24 mil/uL (4.20-5.00); RDW-CV 15.5 % (10.5-14.5); WBC 7.2 thou/uL (4.0-11.0)
--- NOTE | 2020-08-27 05:41 | NUR ---
PT. HAD UNEVENTFUL SHIFT. ONE EPISODE OF OXYGEN DESATURATION, PT. PLACED ON BIPAP, TOLERATED FOR 2 HOURS, PT. CONTINUED TO PULL BIPAP OFF AND EXPRESSED BY NODDING HEAD YES THAT SHE WANTED IT OFF. PT. PLACED BACK ON HI-AMARILIS NASAL CANNULA AT 6L AND IS TOLERATING WELL AT THIS TIME. PT. IS NOW ABLE TO NOD HEAD YES/NO IN RESPONSE TO QUESTIONS. ABLE TO FOLLOW COMMANDS. LEVOPHED GTT TURNED OFF AT 0230, REMAINS HEMODYNAMICALLY STABLE. WILL CONTINUE TO MONITOR.
[2020-08-27 05:51] LABS: ABSOLUTE EOSINOPHILS 0.8 thou/uL (0.0-0.7); ABSOLUTE LYMPHOCYTES 0.4 thou/uL (0.8-5.3); ABSOLUTE MONOCYTES 0.3 thou/uL (0.0-1.2); ABSOLUTE NEUTROPHILS 5.7 thou/uL (1.6-8.1); ANISOCYTOSIS 1+; PLATELET ESTIMATE ADEQUATE; POIKILOCYTOSIS 1+
--- NOTE | 2020-08-27 12:06 | NUR ---
ICU rounds: Pt extubated today, doing ok. Only able to answer some yes/no questions. ?dementia. 2L o2. CXR a little worse today. ST to complete swallow study.
--- NOTE | 2020-08-27 16:17 | NUR ---
WOUND NURSE: CHECKED ON PATIENT'S OSTOMY BAG AND IT WAS INTACT, BUT IN NEED OF EMPTYING. INFORMED THE NURSE CARING FOR HER. WILL SEE TOMORROW FOR APPLIANCE CHANGE.
[2020-08-27 16:27] LABS: CALCIUM 9.4 mg/dL (8.5-10.1); CREATININE 1.4 mg/dL (0.6-1.3); POTASSIUM 4.2 mmol/L (3.5-5.1)
--- NOTE | 2020-08-27 17:24 | NUR ---
Pt has been titrated down to 2 LPM NC. Great output after lasix. Coccyx dressing changed today. Pt co itching and leg pain. Prn given with some relief. Tele status. No other events at this time.
[2020-08-28 04:24] LABS: ABSOLUTE EOSINOPHILS 1.1 thou/uL (0.0-0.7); ABSOLUTE LYMPHOCYTES 0.5 thou/uL (0.8-5.3); ABSOLUTE MONOCYTES 0.2 thou/uL (0.0-1.2); ABSOLUTE NEUTROPHILS 4.5 thou/uL (1.6-8.1); BASOPHILS 0.5 %; EOSINOPHILS 17.5 %; HEMOGLOBIN 10.6 gm/dL (12.0-15.0); LYMPHOCYTES 8.5 %; MCHC 33.2 g/dL (28.0-37.0); MCV 93.3 fL (80.0-100.0); MONOCYTES 2.7 %; MPV 7.4 fl. (7.2-11.1); NUCLEATED RBCS 0 /100WBC; PLATELET COUNT* 169 thou/uL (150-400); POLYS 70.8 %; RBC 3.43 mil/uL (4.20-5.00); RDW-CV 15.3 % (10.5-14.5); WBC 6.4 thou/uL (4.0-11.0)
[2020-08-28 04:56] LABS: ALBUMIN 2.9 g/dL (3.4-5.0); CALCIUM 9.4 mg/dL (8.5-10.1); CREATININE 1.5 mg/dL (0.6-1.3); MAGNESIUM 2.2 mg/dL (1.8-2.4); POTASSIUM 3.6 mmol/L (3.5-5.1); TOTAL BILIRUBIN 0.9 mg/dL (<0.1-1.0)
[2020-08-28 12:24] VITALS: BP 118/54
--- NOTE | 2020-08-28 12:52 | NUR ---
CM INFORMED DURING PRIME ROUNDING OF THE PLAN OF CARE FOR THE PT. CARDIOLOGY AND PULM FOLLOWING. PLAN FOR PT TO RETURN TO LTC AT [facility] AT D/C. CM WILL REMAIN AVAILABLE TO ASSIST AND FOLLOW NEEDED.
--- NOTE | 2020-08-28 14:11 | NUR ---
WOUND NURSE: PATIENT SEEN FOR FOLLOW UP ASSESSMENT OF COLOSTOMY SITE. NO LONGER EXCORIATED IT WAS ON TUESDAY. REMOVED OSTOMY AND CLEANSED, THEN CRUSTED WITH SKIN PREP, NYSTATIN POWDER, AND STOMA POWDER. THEN REPLACED OSTOMY APPLIANCE. THIS WAS TOLERATED WELL BY THE PATIENT AND REPORTING NO PAIN RELATED TO IT.
[2020-08-28 16:09] VITALS: BP 115/69
--- NOTE | 2020-08-28 23:46 | NUR ---
ASSUMED CARE OF PATIENT AT 1930. PATIENT APPETITE IMPROVED AND HAS BEEN ASKING FOR SNACKS THROUGHOUT EVENING. BG AND SS INSULIN CHANGED TO ACHS. PATIENT IS REFUSING IVP FLAGYL. PATIENT C/O OF "UNBEARABLE ITCHING". OBTAINED TO FOR PO ABT BUT PATIENT WOULD LIKE A DIFFERENT ABT SHE STATES SHE IS WORRIED THAT SHE IS HAVING AN ALLERGIC REACTION TO THE MEDICATION.
[2020-08-28 23:47] VITALS: BP 121/64
[2020-08-29 04:00] VITALS: BP 107/54
[2020-08-29 08:00] VITALS: BP 118/55
[2020-08-29 09:42] LABS: HEMATOCRIT 32.8 % (37.0-47.0); HEMOGLOBIN 10.6 gm/dL (12.0-15.0); MCH 30.6 pg (26.0-34.0); MCHC 32.4 g/dL (28.0-37.0); MCV 94.4 fL (80.0-100.0); MPV 7.4 fl. (7.2-11.1); NUCLEATED RBCS 0 /100WBC; PLATELET COUNT* 187 thou/uL (150-400); RBC 3.47 mil/uL (4.20-5.00); WBC 7.5 thou/uL (4.0-11.0)
[2020-08-29 09:58] LABS: CALCIUM 9.2 mg/dL (8.5-10.1); CREATININE 1.6 mg/dL (0.6-1.3); POTASSIUM 3.4 mmol/L (3.5-5.1); TOTAL BILIRUBIN 0.6 mg/dL (<0.1-1.0); TOTAL PROTEIN 7.2 g/dL (6.4-8.2)
[2020-08-29 10:12] LABS: ABSOLUTE BASOPHILS 0.1 thou/uL (0.0-0.2); ABSOLUTE EOSINOPHILS 1.1 thou/uL (0.0-0.7); ABSOLUTE LYMPHOCYTES 0.6 thou/uL (0.8-5.3); ABSOLUTE MONOCYTES 0.2 thou/uL (0.0-1.2); ABSOLUTE NEUTROPHILS 5.6 thou/uL (1.6-8.1); PLATELET ESTIMATE ADEQUATE
[2020-08-29 10:13] LABS: HYPOCHROMASIA 1+
--- NOTE | 2020-08-29 12:13 | NUR ---
CM INFORMED DURING PRIME ROUNDING OF THE PLAN OF CARE FOR THE PT. PT REMAIN TELE STATUS AND ON IV ABT'S. PULM AND CARDIOLOGY FOLLOWING. PLAN FOR PT TO RETURN TO [facility] AT D/C, HOWEVER IF PT PARTICIPATES WITH PT/OT AND IS SKILLABLE ISM'S WOULD LIKE TO SKILL PT AT D/C. PT/OT EVALS PENDING. CM TO FAX CLINICAL UPDATE AND PT/OT EVALS WHEN PT/OT EVALS COMPLETED. PT WILL ALSO NEED RAPID COVID TEST PRIOR TO D/C. CM WILL REMAIN AVAILABLE TO ASSIST AND FOLLOW NEEDED. [facility] PHONE: [phone] FAX: [phone]
[2020-08-29 12:26] VITALS: BP 92/53
--- NOTE | 2020-08-29 13:47 | NUR ---
ASSUMED CARE OF PATIENT THIS AM AT 0730. PATIENT IS ALERT AND ORIENTED X 3 TO 4 BUT IS FORGETFUL. SHE SAYS THAT SHE DOES NOT WANT ANY MORE ANTIBIOTICS. SHE C/O ITCHING AND HER SKIN COLOR DOES APPEAR PRINCE. PATIENT MEDICATED X 1 IV WITH BENADRLY FOR ITCHING. TELE SHOWS SR WITH PACS. NO RESPIRATORY DISTRESS NOTED. WILL CONTINUE TO MONITOR. PATIENT PLACED UP IN THE CHAIR BY PT.
[2020-08-29 16:03] VITALS: BP 114/57
[2020-08-29 20:30] VITALS: BP 130/67
[2020-08-30 00:10] VITALS: BP 133/54
[2020-08-30 03:32] LABS: HEMATOCRIT 30.8 % (37.0-47.0); HEMOGLOBIN 10.1 gm/dL (12.0-15.0); MCH 30.6 pg (26.0-34.0); MCHC 32.8 g/dL (28.0-37.0); MCV 93.3 fL (80.0-100.0); MPV 7.1 fl. (7.2-11.1); RBC 3.3 mil/uL (4.20-5.00); RDW-CV 15.1 % (10.5-14.5); WBC 7.9 thou/uL (4.0-11.0)
[2020-08-30 04:05] LABS: CALCIUM 9.2 mg/dL (8.5-10.1); CREATININE 1.9 mg/dL (0.6-1.3); MAGNESIUM 2.4 mg/dL (1.8-2.4); POTASSIUM 3.6 mmol/L (3.5-5.1)
[2020-08-30 04:55] VITALS: BP 120/69
--- NOTE | 2020-08-30 05:19 | NUR ---
PT IS AO X4 LYING IN BED AT TIME OF ASSESSMENT. SHE COMPLAINS OF PAIN IN BLE AND HAS HEELS OFFLOADED WITH PILLOW. HER SKIN IN A RED COLOR IF SHE IS SUNBURNED. SHE HAS SOME ITCHING ON HER BACK AND BENADRYL CREAM WAS APPLIED. HYDROCODONE GIVEN FOR PAIN. PT LUNGS ARE CTA BUT DIMINISIHED WITH SHALLOW BREATHING. SHE IS ON 2L PER NC. PT HAS COLOSTOMY WITH SOME REDNESS TO BASE OF BAG. BLAIR TO DD WITH CLEAR YELLOW URINE. RT IJ TRIPLE LUMEN CATH PATENT AND LABS WERE DRAWN WITH NO PROBLEM THIS AM. PT SLEPT WELL THIS HS AND HAS HAD GOOD ORAL FLUID INTAKE.
[2020-08-30 09:10] VITALS: BP 108/54
[2020-08-30 11:56] VITALS: BP 99/92
--- NOTE | 2020-08-30 17:03 | NUR ---
ASSUMED PT CARE AT 0730. PT IS ALERT AND ORIENTED X2. PT C/O DIET PT EDENTULOUS AT HOME AND HAS NO DIFFICULTY EATING REG FOOD. PHYSICIAN NOTIFIED AND NEW ORDER TO CHANGE DIET TO REGULAR. DRY DRESSING CHANGE TO BLISTERS ON R LEG. PT UPPER ARMS REDDENED AND PT C/O SEVERE ITCHING WITH ANTBIOTICS. PHYSICIAN NOTIFIED AND NEW ORDERS RECIEVED. CREAMS AND POWDERS APPLIED ORDERED. ASSESSMENT COMPLETED, COLOSTOMY DRAINED PRN. SAFETY MEASURES IN PLACE.
--- NOTE | 2020-08-30 20:29 | NUR ---
PT REFUSES PD&C
[2020-08-30 21:00] VITALS: BP 117/68
[2020-08-31 00:22] VITALS: BP 115/74
[2020-08-31 03:39] LABS: HEMOGLOBIN 9.7 gm/dL (12.0-15.0); MCHC 33.3 g/dL (28.0-37.0); MCV 92.9 fL (80.0-100.0); MPV 7.3 fl. (7.2-11.1); RBC 3.12 mil/uL (4.20-5.00); RDW-CV 15.2 % (10.5-14.5); WBC 9.1 thou/uL (4.0-11.0)
[2020-08-31 04:15] LABS: ALBUMIN 2.7 g/dL (3.4-5.0); CALCIUM 8.4 mg/dL (8.5-10.1); CREATININE 1.8 mg/dL (0.6-1.3); MAGNESIUM 1.7 mg/dL (1.8-2.4); POTASSIUM 3.4 mmol/L (3.5-5.1); TOTAL BILIRUBIN 0.6 mg/dL (<0.1-1.0); TOTAL PROTEIN 6.7 g/dL (6.4-8.2)
[2020-08-31 05:32] VITALS: BP 127/65
--- NOTE | 2020-08-31 05:40 | NUR ---
No acute event this shift. Pt no complains of pain. VS stable. Pt O2 sat 90's on 2L NC. Assessment as charted, meds given per jul. Safety precaution in placed, will continue POC.
[2020-08-31 09:00] VITALS: BP 101/45
[2020-08-31 12:00] VITALS: BP 11/34; BP 111/34
[2020-08-31 16:00] VITALS: BP 194/151
--- NOTE | 2020-08-31 18:53 | NUR ---
ASSUMED PT CARE AT 0730. PT ASSESSED AND ULE AND BLE REMAIN REDDENED AND WARM TO TOUCH, PT DENIES ANY ITCHING ONLY SORENESS. REMAINS ON PO ANTIBIOTICS WITHOUT DIFFICULTY. PT THIS AM WITH K+ AT 3.4 AND MAG AT 1.7, PROTOCOLIMPLEMENTED AND REDRAWS SHOW K+ NOW 3.8 AND MAG NOW 1.9. SAFETY MEASURES IN PLACE, PT ASSISTED WITH TURNING AND REPOSITIONING Q2H TO PROMOTE TISSUE TOLERANCE. BLAIR DRAINING CLEAR YELLOW URINE AND COLOSTOMY INTACT AND DRAINED LIGHT BROWN LOOSE STOOL X2. PT C/O DRY EYES AND ORAL DISCOMFORT, NEW ORDERS OBTAINED AND IMPLEMENTED ORDERED. BLISTERS TO RLE POSTERIOR DRESSING CHANGED. NEW DRESSING APPLED TO COCCYX FOR PREVENTATIVE MEASURES. HEELS ARE DRY, INTACT AND OFFLOADED. IV IN RAC DC'D DUE TO INFILTRATION. PT VOICES NO CONCERNS AT THIS TIME. FLUSH. MONITORED AND OFFLOADED,
[2020-08-31 20:00] VITALS: BP 95/53
[2020-09-01] VITALS (7 sets, daily range): BP systolic 100–114; BP diastolic 35–58
[2020-09-01 04:53] LABS: HEMATOCRIT 28.6 % (37.0-47.0); HEMOGLOBIN 9.5 gm/dL (12.0-15.0); MCH 30.8 pg (26.0-34.0); MCHC 33.2 g/dL (28.0-37.0); MCV 92.9 fL (80.0-100.0); MPV 6.8 fl. (7.2-11.1); RBC 3.08 mil/uL (4.20-5.00); RDW-CV 15.1 % (10.5-14.5); WBC 8.3 thou/uL (4.0-11.0)
[2020-09-01 05:09] LABS: ALBUMIN 2.6 g/dL (3.4-5.0); CALCIUM 8.4 mg/dL (8.5-10.1); CREATININE 1.8 mg/dL (0.6-1.3); MAGNESIUM 1.8 mg/dL (1.8-2.4); POTASSIUM 3.6 mmol/L (3.5-5.1); TOTAL BILIRUBIN 0.5 mg/dL (<0.1-1.0); TOTAL PROTEIN 6.6 g/dL (6.4-8.2)
--- NOTE | 2020-09-01 10:36 | NUR ---
ASSUMED CARE OF PATIENT THIS AM. TELE SHOWS SR WITH PACS. SHE DENIES PAIN THIS AM. O2 SATS 99 % ON 2 LITERS. WILL INITIATE DECREASE OF O2. PATIENT REMAINS ON BEDREST. REPOSITIONED Q 2 HR. WILL CONTINUE TO MONITOR.
--- NOTE | 2020-09-01 13:27 | NUR ---
CM INFORMED DURING PRIME ROUNDING OF THE PLAN OF CARE FOR THE PT. PHYSICIAN INFORMS THAT PT MAY BE READY TO D/C BACK TO HER LTC BED AT [facility] TOMORROW. CM SPOKE TO TYRON WITH ADMISSIONS AT [facility] TO INFORM OF THIS AND FAXED PT'S CLINICAL UPDATE. CM WILL REMAIN AVAILABLE TO ASSIST AND FOLLOW NEEDED. [facility] PHONE: [phone] FAX: [phone]
[2020-09-02 03:51] VITALS: BP 106/53
[2020-09-02 04:49] LABS: HEMATOCRIT 27.5 % (37.0-47.0); HEMOGLOBIN 9.3 gm/dL (12.0-15.0); MCH 31.2 pg (26.0-34.0); MCHC 33.6 g/dL (28.0-37.0); MCV 92.8 fL (80.0-100.0); MPV 7.4 fl. (7.2-11.1); RBC 2.97 mil/uL (4.20-5.00); RDW-CV 15.1 % (10.5-14.5); WBC 9.1 thou/uL (4.0-11.0)
[2020-09-02 04:57] LABS: ALBUMIN 2.5 g/dL (3.4-5.0); CALCIUM 8.6 mg/dL (8.5-10.1); CREATININE 1.8 mg/dL (0.6-1.3); TOTAL BILIRUBIN 0.4 mg/dL (<0.1-1.0); TOTAL PROTEIN 6.5 g/dL (6.4-8.2)
--- NOTE | 2020-09-02 07:20 | NUR ---
CHANGE OF SHIFT BEDSIDE REPORT GIVEN PATIENT SEEN AT BEDSIDE, IN BED ASLEEP ASSUMED PATIENT CARE
--- NOTE | 2020-09-02 07:53 | NUR ---
ASSUMED CARE OF PT AFTER REPORT AT 1930. PT A&OX4. FORGETFUL AT TIMES. VSS. PHYSICAL ASSESSMENT COMPLETED AND CHARTED. PT ON O2 AT 2L NC. PT TRACING SR/PAC/PVC ON TELE. PT TURNED TO SIDES. PT COMPLAINED OF RIGHT LEG PAIN-MED GIVEN PER JUL. CHANGED COLOSTOMY BAG. POTASSIUM 3.0 THIS AM-ELECTROLYTE PROTOCOL IN PLACE. PT WITH SACRAL, LEFT BUTTOCK & RIGHT FOOT WOUND- CLEANED, PAT DRY, PHOTOGRAPH TAKEN & COVERED WITH MEPILEX. CALL LIGHT WITHIN REACH.
[2020-09-02 08:00] VITALS: BP 97/58
[2020-09-02] MEDS ORDERED: ACYCLOVIR 200200 MG PO (09:10)
[2020-09-02] MEDS ORDERED: BUMETANIDE 1 MG1 M1 PO (09:10)
[2020-09-02] MEDS ORDERED: HYDROCODON-ACE1 EAC7 PO (09:10)
[2020-09-02] MEDS ORDERED: NYSTATIN100000 UNI SW&SWALLOW (09:10)
[2020-09-02] MEDS ORDERED: TRAMADOL 50 MG50 MG PO (09:10)
[2020-09-02 12:01] VITALS: BP 122/56
--- NOTE | 2020-09-02 12:41 | NUR ---
s/w zeferino at [facility], she will arrange w/c transportation w/o2 at 2L. transportation scheduled for 1600. informed pt and spouse, sammy, of d/c plans. rn provided number to call report. [phone] and asked to do a rapid covid test. us made chart copy.
[2020-09-02 15:38] VITALS: BP 129/48
--- NOTE | 2020-09-02 16:15 | NUR ---
patient refused wound pictures at discharg said "it hurts too much and they just took them"
[2020-09-02 16:35] VITALS: BP 129/48
--- NOTE | 2020-09-02 17:00 | NUR ---
DISCHARGE TO [facility] DCV PAPERWORK SENT IV R IJ REMOVED BLAIR REMOVED PERSONAL BELONGIGNS RETURNED PATIENT ASSISTED OUT VIA WC TO WC YOUNG REPORT GIVEN TO ANUJ AT [facility]
== END 2020-09-02 17:00 | DRG 871 ==
LOC: M.ERS 13:37 → M.2W 14:28 → M.ICU 14:28 → M.TBA-ER 14:28 → M.ICU 16:45 → M.2W 08-27 22:30
PROVIDERS: Emergency Medicine Emergency Medical Services; Internal Medicine; Internal Medicine Critical Care Medicine; Pediatrics; ADMIT Internal Medicine; ATTEND Internal Medicine
PROC: 5A1945Z Respiratory Ventilation, 24-96 Consecutive Hours (ICD-10-PCS; principal; 2020-08-24)
PROC: 02HV33Z Insertion of Infusion Device into Superior Vena Cava, Percutaneous Approach (ICD-10-PCS; principal; 2020-08-24)
PROC: 5A09357 Assistance with Respiratory Ventilation, Less than 24 Consecutive Hours, Continuous Positive Airway Pressure (ICD-10-PCS; principal; 2020-08-24)
PROC: 0BH17EZ Insertion of Endotracheal Airway into Trachea, Via Natural or Artificial Opening (ICD-10-PCS; principal; 2020-08-24)
PROC: 5A0935A Assistance with Respiratory Ventilation, Less than 24 Consecutive Hours, High Flow/Velocity Cannula (ICD-10-PCS; 2020-08-26)
PROC: 5A09357 Assistance with Respiratory Ventilation, Less than 24 Consecutive Hours, Continuous Positive Airway Pressure (ICD-10-PCS; 2020-08-27)
PROC: 5A0935A Assistance with Respiratory Ventilation, Less than 24 Consecutive Hours, High Flow/Velocity Cannula (ICD-10-PCS; 2020-08-27)
PROC: 5A0935A Assistance with Respiratory Ventilation, Less than 24 Consecutive Hours, High Flow/Velocity Cannula (ICD-10-PCS; 2020-08-28)
PROC: 5A0935A Assistance with Respiratory Ventilation, Less than 24 Consecutive Hours, High Flow/Velocity Cannula (ICD-10-PCS; 2020-08-29)
PROC: 5A0935A Assistance with Respiratory Ventilation, Less than 24 Consecutive Hours, High Flow/Velocity Cannula (ICD-10-PCS; 2020-08-30)
PROC: 5A0935A Assistance with Respiratory Ventilation, Less than 24 Consecutive Hours, High Flow/Velocity Cannula (ICD-10-PCS; 2020-09-01)
DX: A41.9 Sepsis, unspecified organism (principal); J18.9 Pneumonia, unspecified organism; J96.01 Acute respiratory failure with hypoxia; I50.43 Acute on chronic combined systolic (congestive) and diastolic (congestive) heart failure; I13.0 Hypertensive heart and chronic kidney disease with heart failure and stage 1 through stage 4 chronic kidney disease, or unspecified chronic kidney disease; B00.2 Herpesviral gingivostomatitis and pharyngotonsillitis; M48.56XA Collapsed vertebra, not elsewhere classified, lumbar region, initial encounter for fracture; M48.54XA Collapsed vertebra, not elsewhere classified, thoracic region, initial encounter for fracture; N17.9 Acute kidney failure, unspecified; E78.5 Hyperlipidemia, unspecified; E03.9 Hypothyroidism, unspecified; F32.9 Major depressive disorder, single episode, unspecified; E11.22 Type 2 diabetes mellitus with diabetic chronic kidney disease; I25.10 Atherosclerotic heart disease of native coronary artery without angina pectoris; M81.0 Age-related osteoporosis without current pathological fracture; I95.9 Hypotension, unspecified; F03.90 Unspecified dementia, unspecified severity, without behavioral disturbance, psychotic disturbance, mood disturbance, and anxiety; J44.9 Chronic obstructive pulmonary disease, unspecified; Z79.82 Long term (current) use of aspirin; Z93.3 Colostomy status; Z79.899 Other long term (current) drug therapy; Z88.0 Allergy status to penicillin; Z86.16 Personal history of COVID-19; I25.5 Ischemic cardiomyopathy; E11.65 Type 2 diabetes mellitus with hyperglycemia; N18.32 Chronic kidney disease, stage 3b; E11.40 Type 2 diabetes mellitus with diabetic neuropathy, unspecified; D64.9 Anemia, unspecified; Z20.822 Contact with and (suspected) exposure to COVID-19

== ENCOUNTER 2021-05-07 09:53 | Inpatient (IN) | payer MEDICARE, MEDICAID ==
[~2021-05-07] VITALS: Ht 170.2 cm; Wt 76.2 kg
--- NOTE | ~2021-05-07 | EEG ---
[address] [address] EEG STUDY REPORT Name: JULIANNA ALONSO Room: [address] IN ..#: [id number] Admission: 05/07/21 Attend Phys: Adri Duenas MD Discharge: Date of : 49 Report #: [id number] THIS REPORT FOR: cc: Pete Boyle William F. DO Khosla,Paul Poe MD ~ DATE OF SERVICE: 05/14/2021 The patient is being evaluated for altered mental status. EEG is being done to further evaluate that. EEG is disorganized and poorly formed. Background activity appeared to be about 4-5 Hz. The EEG was monotonous and continue to have the same pattern throughout the record. Photic stimulation was unremarkable. IMPRESSION: This is an abnormal EEG, which typically occur with encephalopathy. However, the finding is nonspecific and can occur in various other etiologies including effect of psychotropic medications, dementia, etc. Clinical correlation is recommended. By: 0716 0728Paul Wing MD /nt
[~2021-05-07 09:53] MED LIST changes: +ACYCLOVIR 200200 MG PO; +NYSTATIN100000 UNI SW&SWALLOW
[2021-05-07 09:55] VITALS: BP 148/95
[2021-05-07] MEDS ORDERED: ASA81BEC PO (10:06)
[2021-05-07 10:37] LABS: PCO2 41.2 mmHg (35.0-45.0); pH 7.353 (7.340-7.450)
[2021-05-07 10:37] LABS: ABSOLUTE BASOPHILS 0.1 thou/uL (0.0-0.2); ABSOLUTE LYMPHOCYTES 0.5 thou/uL (0.8-5.3); ABSOLUTE MONOCYTES 0.3 thou/uL (0.0-1.2); ABSOLUTE NEUTROPHILS 10.6 thou/uL (1.6-8.1); BASOPHILS 0.5 %; HEMATOCRIT 41.9 % (37.0-47.0); HEMOGLOBIN 12.9 gm/dL (12.0-15.0); LYMPHOCYTES 4.6 %; MCH 27.5 pg (26.0-34.0); MCHC 30.8 g/dL (28.0-37.0); MCV 89.3 fL (80.0-100.0); MONOCYTES 2.3 %; MPV 7.7 fl. (7.2-11.1); NUCLEATED RBCS 0 /100WBC; PLATELET COUNT* 158 thou/uL (150-400); POLYS 92.6 %; RBC 4.69 mil/uL (4.20-5.00); RDW-CV 19.2 % (10.5-14.5); WBC 11.5 thou/uL (4.0-11.0)
[2021-05-07 10:40] LABS: PO2 270.5 mmHg (75.0-100.0)
[2021-05-07 10:52] LABS: APTT 35.7 Seconds (25.0-31.3); CALCIUM 8.6 mg/dL (8.5-10.1); INR 1.2; POTASSIUM 5.7 mmol/L (3.5-5.1); PROTIME 11.8 Seconds (9.20-11.50)
[2021-05-07 10:57] LABS: URINE BILIRUBIN NEGATIVE (Negative); URINE BLOOD 3+ (Negative); URINE CLARITY CLEAR; URINE COLOR YELLOW; URINE GLUCOSE-RANDOM NEGATIVE (Negative); URINE KETONES NEGATIVE (Negative); URINE PROTEIN 3+ (Negative); URINE SPECIFIC GRAVITY 1.025 (1.005-1.030); URINE UROBILINOGEN 0.2 E.U./dl (0.2-1.0)
[2021-05-07 11:00] LABS: URINE LEUKOCYTES-REFLEX 2+ (Negative); URINE NITRITE-REFLEX POSITIVE (Negative)
[2021-05-07 11:06] LABS: ALBUMIN 3.1 g/dL (3.4-5.0); CK-MB MASS 0.7 ng/mL (<0.5-3.6); TOTAL BILIRUBIN 0.8 mg/dL (<0.1-1.0); TOTAL PROTEIN 8.1 g/dL (6.4-8.2)
[2021-05-07 11:07] LABS: SQUAMOUS NONE SEEN /LPF (0-3)
[2021-05-07 11:08] LABS: BACTERIA-REFLEX >30 Many /HPF (None Seen); CRYSTALS None Seen /LPF (None Seen)
[2021-05-07 11:09] LABS: HYALINE CASTS 0-3 Few /LPF (None Seen); URINE RBC >20 Many /HPF (0-2)
[2021-05-07 11:14] LABS: AMP/METHAMP Negative (Negative); BARBITURATES Negative (Negative); BENZODIAZEPINES Negative (Negative); COCAINE Negative (Negative); METHADONE Negative (Negative); OPIATES Negative (Negative); PCP Negative (Negative); THC Negative (Negative)
--- NOTE | 2021-05-07 11:51 | EKG ---
[place] [address] ELECTROCARDIOGRAM REPORT Name: ALONSO,JULIANNA Ramirez Room: [facility]#: [id number] Admission: 05/07/21 Attend Phys: Discharge: Date of : 49 Date of Service: 05/07/21 0956 Report #: [id number] THIS REPORT FOR: //name// [facility] ED Test Date: 2021-05-07 Test Time: 09:56:49 Pat Name: JULIANNA ALONSO Department: Room: Gender: F Developer Analyst: : 1945 Requested By: Fernando Parra Order Number: [id number] MD: Chris Skelton Measurements Intervals [place] Rate: 102 P: 85 UT: 157 QRS: 164 QRSD: 86 T: 74 QT: 327 QTc: 426 Interpretive Statements Sinus tachycardia Low voltage with right axis deviation Consider anterolateral infarct Compared to ECG 08/24/2020 13:43:37 Right-axis deviation now present Sinus rhythm no longer present Prolonged QT interval no longer present Myocardial infarct finding still present Electronically Signed On 05-07-2021 11:51:43 FERRY CAPTAIN by Chris Skelton [email or web address] <ELECTRONICALLY SIGNED> By: Chris Skelton MD, FACC 05/07/21 1151 Chris Skelton MD, FAC /EPI
[2021-05-07 17:30] LABS: CALCIUM 8.2 mg/dL (8.5-10.1); CREATININE 1.9 mg/dL (0.6-1.3); POTASSIUM 5.1 mmol/L (3.5-5.1)
[2021-05-07 21:24] LABS: PCO2 37.3 mmHg (35.0-45.0); pH 7.313 (7.340-7.450)
[2021-05-07 21:26] LABS: PO2 145.7 mmHg (75.0-100.0)
[2021-05-07 22:58] VITALS: BP 132/90
[2021-05-07 23:21] VITALS: BP 79/47
[2021-05-07 23:32] VITALS: BP 132/90
[2021-05-08] VITALS (21 sets, daily range): BP systolic 90–142; BP diastolic 40–106
[2021-05-08 12:32] LABS: MCV 92.5 fL (80.0-100.0); MPV 8.2 fl. (7.2-11.1); NUCLEATED RBCS 0 /100WBC; RDW-CV 20.4 % (10.5-14.5)
[2021-05-08 12:35] LABS: HEMOGLOBIN 12.8 gm/dL (12.0-15.0); MCH 27.6 pg (26.0-34.0); MCHC 29.9 g/dL (28.0-37.0); PLATELET COUNT* 97 thou/uL (150-400); RBC 4.65 mil/uL (4.20-5.00); WBC 10.6 thou/uL (4.0-11.0)
[2021-05-08 12:47] LABS: ALBUMIN 2.2 g/dL (3.4-5.0); CALCIUM 7.9 mg/dL (8.5-10.1); CREATININE 2.1 mg/dL (0.6-1.3); POTASSIUM 4.7 mmol/L (3.5-5.1); TOTAL BILIRUBIN 0.7 mg/dL (<0.1-1.0); TOTAL PROTEIN 6.8 g/dL (6.4-8.2)
[2021-05-08 13:11] LABS: ABSOLUTE EOSINOPHILS 0.1 thou/uL (0.0-0.7); ABSOLUTE LYMPHOCYTES 0.4 thou/uL (0.8-5.3); ABSOLUTE NEUTROPHILS 10.1 thou/uL (1.6-8.1); PLATELET ESTIMATE DECREASED
[2021-05-08 13:12] LABS: HYPOCHROMASIA 1+; POLYCHROMASIA 1+
--- NOTE | 2021-05-08 14:28 | 2DMMODE ---
[place] [address] 2 D/M-MODE ECHOCARDIOGRAM Name: JULIANNA ALONSO Room: [address] IN [facility]#: [id number] Admission: 05/07/21 Attend Phys: Adri Duenas, Discharge: Date of : 49 Date of Service: 05/08/21 1428 Report #: [id number] THIS REPORT FOR: cc: Pete Boyle,Pete Kim,Shilo Guallpa MD [facility] ~ APPROVED REPORT Study performed: 05/08/2021 10:34:44 EXAM: Comprehensive 2D, Doppler, and color-flow Echocardiogram Patient Location: In-Patient Room #: 005 Status: routine BSA: 1.77 HR: 93 bpm BP: 99/55 mmHg Rhythm: NSR Other Information Study Quality: Good Indications elevated bnp 2D Dimensions IVSd: 8.98 (7-11mm) LVOT Diam: 19.87 (18-24mm) LVDd: 57.78 mm PWd: 10.46 (7-11mm) Ascending Ao: 34.26 (22-36mm) LVDs: 51.88 (25-40mm) Aortic Root: 28.24 mm Volumes Left Atrial Volume (Systole) LA ESV Index: 51.30 mL/m2 Aortic Valve AoV Peak El.: 0.98 m/s AO Peak Gr.: 3.82 mmHg LVOT Max P.90 mmHg AO Mean Gr.: 2.20 mmHg LVOT Mean P.53 mmHg LVOT Max V: 0.48 m/s AO V2 VTI: 15.97 cm LVOT Mean V: 0.34 m/s JANY (VTI): 1.61 cm2 LVOT V1 VTI: 8.30 [place] [address] 2 D/M-MODE ECHOCARDIOGRAM Name: JULIANNA ALONSO Room: [address]#: [id number] Admission: 05/07/21 Attend Phys: Adri Duenas, Discharge: Date of : 49 Date of Service: 05/08/21 1428 Report #: [id number] Mitral Valve E/A Ratio: 1.08 MV Decel. Time: 120.17 ms MV E Max El.: 1.12 m/s MV PHT: 34.85 ms MVA (PHT): 6.31 cm2 TDI E/Lateral E': 12.44 Lateral E' El.: 0.09 m/s Pulmonary Valve PV Peak El.: 0.58 m/s PV Peak Gr.: 1.36 mmHg Tricuspid Valve RAP Estimate: 5.00 mmHg TR Peak Gr.: 32.97 mmHg RVSP: 37.00 mmHg PA Pressure: 37.00 mmHg Left Ventricle Left ventricle is mildly dilated. There is severe global hypokinesis of the left ventricle. There is normal left ventricular wall thickness. Left ventricular systolic function is severely decreased. LVEF is 20-25%. Right Ventricle Right ventricle is dilated. The right ventricular systolic function is normal. Atria Left atrium is severely dilated. Right atrium is dilated. Aortic Valve Mild aortic valve sclerosis. No aortic regurgitation is present. There is no aortic valvular stenosis. Mitral Valve There is mitral annular calcification. The mitral valve is normal in structure. Mild mitral regurgitation. No evidence of mitral valve stenosis. Tricuspid Valve The tricuspid valve is normal in structure. Mild tricuspid regurgitation[place] [address] 2 D/M-MODE ECHOCARDIOGRAM Name: ALONSOJULIANNA S Room: [address] IN [facility]#: [id number] Admission: 05/07/21 Attend Phys: Adri Duenas, Discharge: Date of : 49 Date of Service: 05/08/21 1428 Report #: [id number] The pulmonary valve is normal in structure. Mild pulmonic regurgitation. Great Vessels The aortic root is normal in size. IVC is normal in size and collapses >50% with inspiration. Pericardium There is no pericardial effusion. <Conclusion> Left ventricle is mildly dilated. LVEF is 20-25%. Left atrium is severely dilated. Mild aortic valve sclerosis. Mild mitral regurgitation. <ELECTRONICALLY SIGNED> By: Shilo Chung MD, FACC 05/08/21 1428 27 [id number] Shilo Chung MD, FACC /INF
[2021-05-08 16:10] LABS: INFLUENZA A ANTIGEN Negative (Negative); INFLUENZA B ANTIGEN Negative (Negative)
[2021-05-09] VITALS (21 sets, daily range): BP systolic 91–138; BP diastolic 39–82
[2021-05-09 03:23] LABS: ABSOLUTE BASOPHILS 0.1 thou/uL (0.0-0.2); ABSOLUTE EOSINOPHILS 0.1 thou/uL (0.0-0.7); ABSOLUTE LYMPHOCYTES 0.2 thou/uL (0.8-5.3); ABSOLUTE MONOCYTES 0.1 thou/uL (0.0-1.2); ABSOLUTE NEUTROPHILS 8.2 thou/uL (1.6-8.1); BASOPHILS 0.8 %; EOSINOPHILS 1.4 %; HEMATOCRIT 37.7 % (37.0-47.0); HEMOGLOBIN 11.6 gm/dL (12.0-15.0); LYMPHOCYTES 2.6 %; MCH 27.3 pg (26.0-34.0); MCHC 30.7 g/dL (28.0-37.0); MCV 89.1 fL (80.0-100.0); MONOCYTES 1.4 %; MPV 8.2 fl. (7.2-11.1); NUCLEATED RBCS 0 /100WBC; PLATELET COUNT* 89 thou/uL (150-400); POLYS 93.8 %; RBC 4.23 mil/uL (4.20-5.00); WBC 8.7 thou/uL (4.0-11.0)
[2021-05-09 03:36] LABS: ALBUMIN 2.1 g/dL (3.4-5.0); CALCIUM 7.7 mg/dL (8.5-10.1); CREATININE 2.1 mg/dL (0.6-1.3); POTASSIUM 4.3 mmol/L (3.5-5.1); TOTAL BILIRUBIN 0.6 mg/dL (<0.1-1.0); TOTAL PROTEIN 5.9 g/dL (6.4-8.2)
[2021-05-09 03:50] LABS: PREALBUMIN 9.5 mg/dL (18.0-35.7)
[2021-05-10] VITALS (7 sets, daily range): BP systolic 87–149; BP diastolic 40–77
[2021-05-10 07:45] LABS: ABSOLUTE EOSINOPHILS 0.8 thou/uL (0.0-0.7); ABSOLUTE LYMPHOCYTES 0.2 thou/uL (0.8-5.3); ABSOLUTE MONOCYTES 0.2 thou/uL (0.0-1.2); ABSOLUTE NEUTROPHILS 6.9 thou/uL (1.6-8.1); BASOPHILS 0.5 %; EOSINOPHILS 10.1 %; HEMATOCRIT 33.8 % (37.0-47.0); HEMOGLOBIN 10.3 gm/dL (12.0-15.0); LYMPHOCYTES 2.8 %; MCH 27.2 pg (26.0-34.0); MCHC 30.6 g/dL (28.0-37.0); MCV 88.9 fL (80.0-100.0); MONOCYTES 2.2 %; MPV 8.7 fl. (7.2-11.1); NUCLEATED RBCS 0 /100WBC; PLATELET COUNT* 88 thou/uL (150-400); POLYS 84.4 %; RDW-CV 19.1 % (10.5-14.5); WBC 8.2 thou/uL (4.0-11.0)
[2021-05-10 07:54] LABS: ALBUMIN 2.1 g/dL (3.4-5.0); CALCIUM 7.8 mg/dL (8.5-10.1); CREATININE 2.2 mg/dL (0.6-1.3); POTASSIUM 3.6 mmol/L (3.5-5.1); TOTAL BILIRUBIN 0.5 mg/dL (<0.1-1.0); TOTAL PROTEIN 5.6 g/dL (6.4-8.2)
--- NOTE | 2021-05-10 09:25 | CON ---
[address] [address] CONSULTATION Name: JULIANNA ALONSO Room: [address] IN .R.#: [id number] Admission: 05/07/21 Attend Phys: Adri Duenas MD Discharge: Date of : 49 Report #: [id number] THIS REPORT FOR: cc: Pete Boyle William F. DO [place], Roxane S. DO ~ DATE OF CONSULTATION: 05/08/2021 NEUROLOGY CONSULT HISTORY OF PRESENT ILLNESS: The patient is a 76-year-old female with a history of dementia, who was brought to the emergency room for altered mental status. Apparently, the patient was found unconscious. When EMS arrived, she was lethargic and not obeying simple commands. The long-term home suspects possible medication overdose. No history can be obtained from the patient. This is secondary to her diagnosis of dementia. The history is obtained from the chart. PAST MEDICAL HISTORY: Type 2 diabetes mellitus, chronic obstructive pulmonary disease, congestive heart failure, dementia, osteoporosis, hypertension, depression, hypothyroidism, chronic kidney disease, hyperlipidemia, ischemic cardiomyopathy, coronary atherosclerosis. PAST SURGICAL HISTORY: Colostomy. MEDICATIONS: In the skilled nursing include Tylenol Arthritis, donepezil at bedtime, atorvastatin 40 mg daily, carvedilol 3.125 mg b.i.d., Claritin daily, duloxetine 60 mg daily, stool softener daily, gabapentin 300 mg t.i.d. Januvia 25 mg daily, levothyroxine 112 mcg daily, magnesium 400 mg b.i.d., melatonin at bedtime, multivitamin daily, vitamin C 500 mg daily, vitamin D daily, Voltaren gel q.i.d., aspirin 81 mg daily. ALLERGIES: PENICILLIN. PHYSICAL EXAMINATION: VITAL SIGNS: Temperature 38.7, pulse rate 90, respiratory rate 15, blood pressure 102/57, bedside pulse oximetry 96% on BiPAP. NEUROLOGIC: The patient was easily arousable. She was confused. She was not oriented to place or time. The patient is wearing a BiPAP mask. Facial expressions appeared symmetrical. She was able to raise both arms over her head. She appears to have flexion contractures in the lower extremities and cannot completely straighten her legs. However, she was able to wiggle her toes back and forth and she attempted to straighten her legs, but could not do that completely. Even with passive range of motion, the [place] [address] CONSULTATION Name: JULIANNA ALONSO Room: [address]#: [id number] Admission: 05/07/21 Attend Phys: Adri Duenas MD Discharge: Date of : 49 Report #: [id number] Reflexes are 1/4 in the upper and lower extremities. Plantar responses are flexor. There is no evidence of dysmetria in the upper extremities. LABORATORY DATA: Hematology: White blood cell count 11.5, hemoglobin 12.9, hematocrit 41.9, MCV 89.3, platelet count 158,000. INR 1.2. Urinalysis; 3+ protein, 3+ blood, nitrite positive, 2+ leukocyte esterase. Blood gas; pH 7.313, pCO2 of 37, pO2 of 145, oxygen saturation 98%. Chemistry: Sodium 141, potassium 5.1, chloride 105, carbon dioxide 25, BUN 27, creatinine 1.9, GFR 26, glucose 188. Lactic acid 2, calcium 8.2. Serology: COVID negative. IMAGING STUDIES: Head CT shows no acute intracranial abnormality, age-related findings including diffuse cerebral atrophy and changes of chronic microvascular disease. IMPRESSION AND PLAN: This patient has had an episode of altered mental status. This may be secondary to underlying urinary tract infection. The patient is currently being treated with antibiotics, which include vancomycin and Rocephin. I suspect once the urinary tract infection is cleared. The patient will return to her baseline. She is on donepezil 10 mg at bedtime. I would not change this dose. I will order a B12 and TSH to complete the dementia workup. I thank you for your kind referral of the patient and will continue to follow her with you. <ELECTRONICALLY SIGNED> By: Corie Petit DO 05/10/21 0925 [id number] Petit DO /nt
[2021-05-11 04:31] LABS: ABSOLUTE EOSINOPHILS 0.4 thou/uL (0.0-0.7); ABSOLUTE LYMPHOCYTES 0.3 thou/uL (0.8-5.3); ABSOLUTE MONOCYTES 0.6 thou/uL (0.0-1.2); ABSOLUTE NEUTROPHILS 6.7 thou/uL (1.6-8.1); BASOPHILS 0.4 %; EOSINOPHILS 5.3 %; HEMATOCRIT 37.2 % (37.0-47.0); HEMOGLOBIN 11.3 gm/dL (12.0-15.0); LYMPHOCYTES 4.2 %; MCH 27.4 pg (26.0-34.0); MCHC 30.3 g/dL (28.0-37.0); MCV 90.4 fL (80.0-100.0); MONOCYTES 7.6 %; MPV 8.6 fl. (7.2-11.1); NUCLEATED RBCS 1 /100WBC; PLATELET COUNT* 75 thou/uL (150-400); POLYS 82.5 %; RBC 4.12 mil/uL (4.20-5.00); RDW-CV 20.2 % (10.5-14.5); WBC 8.1 thou/uL (4.0-11.0)
[2021-05-11 04:57] LABS: ALBUMIN 2.4 g/dL (3.4-5.0); CALCIUM 8.3 mg/dL (8.5-10.1); CREATININE 2.2 mg/dL (0.6-1.3); POTASSIUM 3.9 mmol/L (3.5-5.1); TOTAL BILIRUBIN 0.9 mg/dL (<0.1-1.0); TOTAL PROTEIN 6.4 g/dL (6.4-8.2)
[2021-05-11 05:48] VITALS: BP 121/50
[2021-05-11 06:50] LABS: ANISOCYTOSIS 2+; PLATELET ESTIMATE ADEQUATE
[2021-05-11 08:00] VITALS: BP 128/74
[2021-05-11 12:00] VITALS: BP 142/83
--- NOTE | 2021-05-11 15:26 | EKG ---
[place] [address] ELECTROCARDIOGRAM REPORT Name: JULIANNA ALONSO Room: [address] [place] [facility].#: [id number] Admission: 05/07/21 Attend Phys: Adri Duenas, Discharge: Date of : 49 Date of Service: 05/09/21 0758 Report #: [id number] THIS REPORT FOR: //name// [facility] Test Date: 2021-05-09 Test Time: 07:58:35 Pat Name: JULIANNA ALONSO Department: Room: [address] Gender: F Maintenance Carpenter: : 1945 Requested By: Adri Duenas Order Number: [id number] Willis MD: Mahin Nelson Measurements Intervals [place] Rate: 128 P: 234 [place]: 90 QRS: 138 QRSD: 77 T: 57 QT: 379 QTc: 553 Interpretive Statements Supraventricular tachycardia of unspecified mechanism Low voltage, extremity and precordial leads Abnormal lateral Q waves Anteroseptal infarct, old Prolonged QT interval Compared to ECG 05/07/2021 09:56:49 Q waves now present Prolonged QT interval now present Myocardial infarct finding still present Electronically Signed On 05-11-2021 15:26:19 SOLUTION ARCHITECT by Mahin Nelson [email or web address] <ELECTRONICALLY SIGNED> By: Mahin Nelson MD, [facility] 05/11/21 1526 0758 [id number] Mahin Nelson MD, [facility] /EPI
[2021-05-11 20:00] VITALS: BP 142/89
[2021-05-11 22:46] VITALS: BP 140/67
[2021-05-12 04:38] VITALS: BP 139/71; BP 140/68
[2021-05-12 04:59] LABS: HEMATOCRIT 39.2 % (37.0-47.0); HEMOGLOBIN 11.7 gm/dL (12.0-15.0); MCHC 29.9 g/dL (28.0-37.0); MCV 90.5 fL (80.0-100.0); MPV 8.7 fl. (7.2-11.1); NUCLEATED RBCS 1 /100WBC; PLATELET COUNT* 78 thou/uL (150-400); RBC 4.33 mil/uL (4.20-5.00); WBC 9.1 thou/uL (4.0-11.0)
[2021-05-12 05:01] LABS: INR 1.7; PROTIME 16.7 Seconds (9.20-11.50)
[2021-05-12 05:07] LABS: ALBUMIN 2.5 g/dL (3.4-5.0); CALCIUM 8.3 mg/dL (8.5-10.1); CREATININE 2.4 mg/dL (0.6-1.3); POTASSIUM 4.2 mmol/L (3.5-5.1); TOTAL BILIRUBIN 1.1 mg/dL (<0.1-1.0); TOTAL PROTEIN 6.5 g/dL (6.4-8.2)
[2021-05-12 05:35] LABS: ABSOLUTE LYMPHOCYTES 0.6 thou/uL (0.8-5.3); ABSOLUTE MONOCYTES 0.8 thou/uL (0.0-1.2); ABSOLUTE NEUTROPHILS 7.6 thou/uL (1.6-8.1); PLATELET ESTIMATE DECREASED
[2021-05-12 05:36] LABS: HYPOCHROMASIA 1+
[2021-05-12 05:37] LABS: ANISOCYTOSIS 1+
[2021-05-12 08:00] VITALS: BP 145/64
--- NOTE | 2021-05-12 08:56 | EKG ---
[place] [address] ELECTROCARDIOGRAM REPORT Name: JULIANNA ALONSO Room: [address] ADM [place] ..#: [id number] Admission: 05/07/21 Attend Phys: Adri Duenas, Discharge: Date of : 49 Date of Service: 05/11/21 0939 Report #: [id number] THIS REPORT FOR: //name// [facility] Test Date: 2021-05-11 Test Time: 09:39:57 Pat Name: JULIANNA ALONSO Department: Room: [address] Gender: F Career Development Consultant: KF : 1945 Requested By: Adri Duenas Order Number: [id number] Reading MD: Chris Skelton Measurements Intervals [place] Rate: 65 P: 13 PA: 171 QRS: 148 QRSD: 81 T: QT: 556 QTc: 579 Interpretive Statements Sinus rhythm Right axis deviation Low voltage, extremity and precordial leads Abnormal R-wave progression, late transition Nonspecific T abnormalities, lateral leads Prolonged QT interval Compared to ECG 05/09/2021 07:58:35 Right-axis deviation now present T-wave abnormality now present Supraventricular tachycardia no longer present Q waves no longer present Myocardial infarct finding no longer present Electronically Signed On 05-12-2021 8:56:48 TRAILER [employer]ARK MANAGER by Chris Skelton [email or web address] <ELECTRONICALLY SIGNED> By: Chris Skelton MD, [facility] 05/12/21 0856 8 Chris Skelton MD, [facility] /EPI
[2021-05-12 12:00] VITALS: BP 154/73
[2021-05-12 16:00] VITALS: BP 123/59
[2021-05-12 20:00] VITALS: BP 135/60
[2021-05-13] VITALS: BP 118/40
[2021-05-13 04:00] VITALS: BP 87/21
[2021-05-13 05:32] LABS: PREALBUMIN 8.1 mg/dL (18.0-35.7)
[2021-05-13 05:33] LABS: ABSOLUTE LYMPHOCYTES 0.8 thou/uL (0.8-5.3); ABSOLUTE MONOCYTES 0.2 thou/uL (0.0-1.2); ABSOLUTE NEUTROPHILS 4.7 thou/uL (1.6-8.1); BASOPHILS 0.4 %; EOSINOPHILS 0.1 %; HEMATOCRIT 37.7 % (37.0-47.0); HEMOGLOBIN 11.3 gm/dL (12.0-15.0); LYMPHOCYTES 13.6 %; MCH 27.3 pg (26.0-34.0); MCHC 30.1 g/dL (28.0-37.0); MCV 90.6 fL (80.0-100.0); MONOCYTES 2.9 %; MPV 8.2 fl. (7.2-11.1); NUCLEATED RBCS 1 /100WBC; PLATELET COUNT* 90 thou/uL (150-400); RBC 4.16 mil/uL (4.20-5.00); RDW-CV 20.3 % (10.5-14.5); WBC 5.7 thou/uL (4.0-11.0)
[2021-05-13 05:58] LABS: ALBUMIN 1.9 g/dL (3.4-5.0); CALCIUM 7.9 mg/dL (8.5-10.1); CREATININE 2.3 mg/dL (0.6-1.3); POTASSIUM 4.7 mmol/L (3.5-5.1); TOTAL BILIRUBIN 1.1 mg/dL (<0.1-1.0); TOTAL PROTEIN 5.2 g/dL (6.4-8.2)
[2021-05-13 08:15] VITALS: BP 136/61
[2021-05-13 10:12] LABS: HEPATITIS B SURFACE AG Negative (Negative)
[2021-05-13 11:20] VITALS: BP 99/77
[2021-05-13 16:00] VITALS: BP 117/53
[2021-05-13 20:00] VITALS: BP 148/61
[2021-05-14] VITALS: BP 131/53
[2021-05-14 04:00] VITALS: BP 139/44
[2021-05-14 08:00] VITALS: BP 133/67
[2021-05-14 12:00] VITALS: BP 121/58
[2021-05-14 15:47] VITALS: BP 136/67
[2021-05-14 19:45] VITALS: BP 146/74
[2021-05-15] VITALS: BP 142/7
[2021-05-15 08:00] VITALS: BP 140/62
[2021-05-15 12:00] VITALS: BP 147/67
[2021-05-15 16:00] VITALS: BP 157/73
[2021-05-15 20:00] VITALS: BP 127/58
[2021-05-16 08:00] VITALS: BP 130/62
[2021-05-16 11:50] VITALS: BP 171/93
[2021-05-16 15:35] VITALS: BP 179/92
[2021-05-16 20:00] VITALS: BP 146/78
[2021-05-17 08:00] VITALS: BP 124/59
[2021-05-17 11:50] VITALS: BP 156/76
[2021-05-17 15:45] VITALS: BP 145/82
[2021-05-17 20:00] VITALS: BP 147/74
[2021-05-18] VITALS: BP 116/54
[2021-05-18 04:40] LABS: HEMOGLOBIN 10.4 gm/dL (12.0-15.0); MCH 27.2 pg (26.0-34.0); MCHC 31.4 g/dL (28.0-37.0); MCV 86.8 fL (80.0-100.0); MPV 7.7 fl. (7.2-11.1); RBC 3.8 mil/uL (4.20-5.00); WBC 5.4 thou/uL (4.0-11.0)
[2021-05-18 05:15] LABS: CALCIUM 8.2 mg/dL (8.5-10.1); CREATININE 1.3 mg/dL (0.6-1.3); POTASSIUM 4.4 mmol/L (3.5-5.1); TOTAL BILIRUBIN 0.8 mg/dL (<0.1-1.0); TOTAL PROTEIN 5.7 g/dL (6.4-8.2)
[2021-05-18] MEDS ORDERED: ELIQUIS5 MG PO (12:45)
[2021-05-18] MEDS ORDERED: METOPROLOL SUCC25 M1 PO (12:45)
[2021-05-18 12:53] VITALS: BP 129/100
== END 2021-05-18 18:06 | DRG 871 ==
LOC: M.ERS 09:53 → M.TBA-ER 12:07 → M.ERS 12:07 → M.TBA-ER 21:08 → M.2W 21:28 → M.ICU 21:28 → M.TBA-ER 21:28 → M.ICU 22:55 → M.2W 05-09 21:34
PROVIDERS: Emergency Medicine; Internal Medicine; Registered Nurse; ADMIT Internal Medicine; ATTEND Internal Medicine
PROC: 5A09357 Assistance with Respiratory Ventilation, Less than 24 Consecutive Hours, Continuous Positive Airway Pressure (ICD-10-PCS; principal; 2021-05-07)
PROC: 05HY33Z Insertion of Infusion Device into Upper Vein, Percutaneous Approach (ICD-10-PCS; 2021-05-11)
PROC: 5A09357 Assistance with Respiratory Ventilation, Less than 24 Consecutive Hours, Continuous Positive Airway Pressure (ICD-10-PCS; 2021-05-12)
DX: A41.59 Other Gram-negative sepsis (principal); J96.01 Acute respiratory failure with hypoxia; J69.0 Pneumonitis due to inhalation of food and vomit; I50.23 Acute on chronic systolic (congestive) heart failure; G92.8 Other toxic encephalopathy; N39.0 Urinary tract infection, site not specified; L03.115 Cellulitis of right lower limb; N17.9 Acute kidney failure, unspecified; I47.1 Supraventricular tachycardia; I48.92 Unspecified atrial flutter; L51.1 Stevens-Johnson syndrome; I13.0 Hypertensive heart and chronic kidney disease with heart failure and stage 1 through stage 4 chronic kidney disease, or unspecified chronic kidney disease; Z20.822 Contact with and (suspected) exposure to COVID-19; I25.5 Ischemic cardiomyopathy; E78.5 Hyperlipidemia, unspecified; N18.9 Chronic kidney disease, unspecified; E03.9 Hypothyroidism, unspecified; F32.9 Major depressive disorder, single episode, unspecified; M81.0 Age-related osteoporosis without current pathological fracture; F03.90 Unspecified dementia, unspecified severity, without behavioral disturbance, psychotic disturbance, mood disturbance, and anxiety; I25.10 Atherosclerotic heart disease of native coronary artery without angina pectoris; E11.22 Type 2 diabetes mellitus with diabetic chronic kidney disease; I48.91 Unspecified atrial fibrillation; D64.9 Anemia, unspecified; B96.4 Proteus (mirabilis) (morganii) as the cause of diseases classified elsewhere; D69.6 Thrombocytopenia, unspecified; E83.51 Hypocalcemia; L27.0 Generalized skin eruption due to drugs and medicaments taken internally; Z93.3 Colostomy status; Z88.0 Allergy status to penicillin